=== PATIENT | male | born 1950 | race Caucasian/White ===

== ENCOUNTER 2017-10-20 13:50 | Emergency (ER) | payer MEDICARE ==
[2016-08-18 12:09] VITALS: Wt 76.4 kg
[~2017-10-20 13:50] MED LIST: ACE325 PO; ADV250/50; ALB0.5 INH; ALB6.7R INH; ALPR-1 PO; ALPR-429 PO; AMLO-104 PO; AMLO-96 PO; Albuterol Sulfate NEB; Albuterol/Ipratropium NEB; BISA-229 PO; CALC-515 PO; CARV12.578 PO; CARV3.1255 PO; CETI-459 PO; DOXY150T6 PO; ESCI10TA8 PO; ESCI20TA8 PO; ESCI5TAB10 PO; FLUT1DIS29 IH; FURO-45 PO; FURO-47 PO; FURO20TA19 PO; FURO40TA35 PO; IPRA3AMP21 IH; IPRA3AMP36 IH; IPRA3AMP37 NEB; LORA10CA3 PO; LOSA100T67 PO; LOSA50TA72 PO; MON10 PO; MYLL PO; NITT TD; OLM20 PO; OMEP-218 PO; ONDA-153 SL; PANT40TA65 PO; PRE10 PO; PRED-1 PO; PRED-314 PO; PRED-420 PO; PRED20TA6 PO; SULF1TAB24 PO; TUM500 PO
--- NOTE | 2017-10-20 13:56 | ER Report ---
History and Physical Time Seen By MD: 13:55 (RHIANNON LEAL MD) HPI/ROS CHIEF COMPLAINT: Shortness of breath HISTORY OF PRESENT ILLNESS: Patient is 67 year old male with past medical history significant for COPD and asthma that is related to years working in the [employer]. He states that over the past 4 days and increasing shortness of breath. He denies any chest pain or pressure. He does have oxygen at home but has not been using it. Denies any body aches fevers or chills or any other type of infectious type symptoms. Patient lives by himself. Because the symptoms were not improving he presents to the emergency department for evaluation. Patient is not a smoker. Patient states that he did have a DuoNeb just prior to coming to the emergency department approximately 30 minutes prior. States this is not helping. This is why he presents to the emergency department for evaluation. REVIEW OF SYSTEMS: Constitutional: No fever, no chills. Eyes: No discharge. ENT: No sore throat. Cardiovascular: No chest pain, no palpitations. Respiratory: Shortness of breath, no cough Gastrointestinal: No abdominal pain, no vomiting. Genitourinary: No hematuria. Musculoskeletal: No back pain. Skin: No rashes. Neurological: No headache. (RHIANNON LEAL MD) Allergies: Coded Allergies: acetylcysteine (Verified Adverse Reaction, Intermediate, bronchospasms, ) Home Meds Active Scripts Albuterol Sulfate 0.083% (ALBUTEROL SULFATE 0.083%) 2.5 Mg/3 Ml Vial.neb, 2.5 MG INH Q4-6H Y for WHEEZING, #25 INH Prov:SHANEL SELBY V DO 10/20/17 Azithromycin (ZITHROMAX) 250 Mg Tablet, 1 TAB PO QDAY, #4 TAB Prov:ROHITORAROBERTSHANEL V DO 10/20/17 Prednisone (PREDNISONE) 20 Mg Tablet, 20 MG PO BID, #10 TAB Prov:LAURORA,SHANEL V DO 10/20/17 Pantoprazole Sodium (PANTOPRAZOLE SODIUM) 40 Mg Tablet.dr, 40 MG PO QDAY, #30 TAB.SR 4 Refills Prov:TOMMY LEHMAN MD 07/18/17 Escitalopram Oxalate (ESCITALOPRAM OXALATE) 20 Mg Tablet, 20 MG PO QDAY, #30 TAB 4 Refills Prov:TOMMY LEHMAN MD 07/18/17 Losartan Potassium (LOSARTAN POTASSIUM) 100 Mg Tablet, 100 MG PO QDAY, #30 TAB 4 Refills Prov:TOMMY LEHMAN MD 07/18/17 Furosemide (FUROSEMIDE) 40 Mg Tablet, 1 TAB PO QODAY, #30 TAB 4 Refills Prov:TOMMY LEHMAN MD 07/18/17 Albuterol Sulfate (PROVENTIL HFA) 6.7 Gm Inh, 2 PUFF INH 3-4XD Y for SHORTNESS OF BREATH, #1 INH 4 Refills Prov:TOMMY LEHMAN MD 07/18/17 Fluticasone/Salmeterol (ADVAIR 500-50 DISKUS) 1 Each Disk.w.dev, 1 EACH IH BID, #1 DISK 6 Refills Prov:TOMMY LEHMAN MD 07/18/17 Alprazolam (XANAX) 0.5 Mg Tablet, 1 TAB PO QDAY Y for ANXIETY, #30 TAB Prov:TOMMY LEHMAN MD 07/18/17 Ipratropium/Albuterol Sulfate (IPRAT-ALBUT 0.5-3(2.5) MG/3 ML) 3 Ml Ampul.neb, 3 ML IH Q4-6H Y for SHORTNESS OF BREATH, #100 VIAL 4 Refills Prov:TOMMY LEHMAN MD 07/18/17 Carvedilol (CARVEDILOL) 12.5 Mg Tablet, 0.5 TAB PO BID, #30 TAB 4 Refills Prov:TOMMY LEHMAN MD 07/18/17 Reported Medications Calcium Carbonate (TUMS) 200 Mg Tab.chew, 200 MG PO PRN, TAB.CHEW 09/04/16 Past Medical/Surgical History Past medical history significant for COPD, asthma, history of anxiety and depression, history of dilated cardiomyopathy and hypertension. Past surgical history for herniated disc repair in 1996 and total bilateral hip replacement. (RHIANNON LEAL MD) Hx Smoking: No Smoking Status: Never Smoker Exposure to Second Hand Smoke?: No (worked in [employer]) Hx Substance Use Disorder: No Hx Alcohol Use: Yes (RHIANNON LEAL MD) Constitutional Vital Sign - Last 24 Hours 10/20/17 10/20/17 10/20/17 10/20/17 13:54 13:57 14:00 14:00 Temp 98.5 Pulse 97 88 Resp 22 16 B/P (MAP) 200/144 (162) 200/144 Pulse Ox 80 100 O2 Delivery Room Air Room Air 10/20/17 10/20/17 10/20/17 10/20/17 14:00 14:07 14:10 14:15 Pulse 102 86 90 Resp 16 B/P (MAP) 208/129 (155) 196/123 (147) 189/118 (141) Pulse Ox 99 91 10/20/17 10/20/17 10/20/17 10/20/17 14:17 14:20 14:30 14:40 Pulse 94 86 83 B/P (MAP) 191/115 (140) Pulse Ox 95 94 95 O2 Flow Rate 3.0 10/20/17 10/20/17 10/20/17 10/20/17 14:45 14:50 15:00 15:35 Pulse 81 83 79 Resp 16 B/P (MAP) 182/115 (137) 193/126 (148) Pulse Ox 96 95 10/20/17 10/20/17 15:35 15:43 Pulse 78 Resp 16 Pulse Ox 95 O2 Delivery Nasal Cannula O2 Flow Rate 3.0 (LAURORA,SHANEL V DO) Physical Exam General Appearance: The patient is alert, has no immediate need for airway protection and no signs of toxicity. Increased work of breathing. Initial oxygen saturation was 75% on room air. Eyes: Pupils equal and round no pallor or injection. ENT, Mouth: Mucous membranes are moist. Respiratory: Patient is somewhat barrel chested. Patient with increased respiratory rate. Diffuse audible wheezes bilaterally no rhonchi noted.. Cardiovascular: Regular rate and rhythm. Gastrointestinal: Abdomen is soft and non tender, no masses, bowel sounds normal. Neurological: Awake and alert Skin: Warm and dry, no rashes. Musculoskeletal: Neck is supple non tender. Extremities are nontender, nonswollen and have full range of motion. (RHIANNON LEAL MD) Medical Decision Making Data Points Result Diagram: 10/20/17 0000 10/20/17 0000 Laboratory Hematology Test 10/20/17 00:00 10/20/17 14:20 10/20/17 15:35 Red Blood Count 5.50 M/uL (4.00-5.60) Mean Corpuscular Volume 87.2 fL (80.0-96.0) Mean Corpuscular Hemoglobin 30.2 pg (26.0-33.0) Mean Corpuscular Hemoglobin Concent 34.7 g/dL (32.0-36.0) Red Cell Distribution Width 13.9 % (11.5-14.5) Mean Platelet Volume 7.5 fL (7.2-11.1) Neutrophils (%) (Auto) 84.5 % (39.4-72.5) Lymphocytes (%) (Auto) 8.9 % (17.6-49.6) Monocytes (%) (Auto) 5.2 % (4.1-12.4) Eosinophils (%) (Auto) 0.9 % (0.4-6.7) Basophils (%) (Auto) 0.5 % (0.3-1.4) Nucleated RBC Relative Count (auto) 0.0 /100WBC Neutrophils # (Auto) 7.2 K/uL (2.0-7.4) Lymphocytes # (Auto) 0.8 K/uL (1.3-3.6) Monocytes # (Auto) 0.4 K/uL (0.3-1.0) Eosinophils # (Auto) 0.1 K/uL (0.0-0.5) Basophils # (Auto) 0.0 K/uL (0.0-0.1) Nucleated RBC Absolute Count (auto) 0.00 K/uL Peripheral Blood Smear No Y/N Prothrombin Time 14.1 seconds (12.0-14.4) Prothromb Time International Ratio 1.08 Activated Partial Thromboplast Time 36 seconds (23-35) Sodium Level 134 mmol/L (137-145) Potassium Level 4.4 mmol/L (3.5-5.0) Chloride Level 96 mmol/L (98-107) Carbon Dioxide Level 28 mmol/L (22-30) Blood Urea Nitrogen 12 mg/dl (9-21) Creatinine 0.90 mg/dl (0.66-1.25) Glomerular Filtration Rate Calc > 60.0 Random Glucose 150 mg/dl (75-110) Calcium Level 8.3 mg/dl (8.4-10.2) Total Bilirubin 1.1 mg/dl (0.2-1.3) Aspartate Amino Transf (AST/SGOT) 33 U/L (0-35) Alanine Aminotransferase (ALT/SGPT) 43 U/L (0-56) Alkaline Phosphatase 65 U/L (0-126) B-Type Natriuretic Peptide 445 pg/ml (0-100) Total Protein 7.3 gm/dl (6.3-8.2) Albumin 4.0 g/dl (3.5-5.0) Urine Color Yellow Urine Clarity Clear Urine pH 6.0 pH (4.8-9.5) Urine Specific Morrill 1.006 Urine Protein 30 mg/dL (NEGATIVE) Urine Glucose (UA) Negative mg/dL (NEGATIVE) Urine Ketones Negative mg/dL (NEGATIVE) Urine Blood Negative (NEGATIVE) Urine Nitrite Negative (NEGATIVE) Urine Bilirubin Negative (NEGATIVE) Urine Urobilinogen Negative mg/dL (0.2-1.9) Urine Leukocyte Esterase Negative (NEGATIVE) Urine RBC None /HPF (0-2/HPF) Urine WBC <1 /HPF (0-5/HPF) Urine Squamous Epithelial Cells None /LPF (</=FEW) Urine Bacteria Negative /HPF (NONE-FEW) Urine Mucus None /HPF (NONE-FEW) Troponin I < 0.012 ng/ml Chemistry Test 10/20/17 00:00 10/20/17 14:20 10/20/17 15:35 White Blood Count 8.5 k/uL (4.5-11.0) Red Blood Count 5.50 M/uL (4.00-5.60) Hemoglobin 16.6 g/dL (14.0-18.0) Hematocrit 47.9 % (42.0-52.0) Mean Corpuscular Volume 87.2 fL (80.0-96.0) Mean Corpuscular Hemoglobin 30.2 pg (26.0-33.0) Mean Corpuscular Hemoglobin Concent 34.7 g/dL (32.0-36.0) Red Cell Distribution Width 13.9 % (11.5-14.5) Platelet Count 145 K/uL (150-450) Mean Platelet Volume 7.5 fL (7.2-11.1) Neutrophils (%) (Auto) 84.5 % (39.4-72.5) Lymphocytes (%) (Auto) 8.9 % (17.6-49.6) Monocytes (%) (Auto) 5.2 % (4.1-12.4) Eosinophils (%) (Auto) 0.9 % (0.4-6.7) Basophils (%) (Auto) 0.5 % (0.3-1.4) Nucleated RBC Relative Count (auto) 0.0 /100WBC Neutrophils # (Auto) 7.2 K/uL (2.0-7.4) Lymphocytes # (Auto) 0.8 K/uL (1.3-3.6) Monocytes # (Auto) 0.4 K/uL (0.3-1.0) Eosinophils # (Auto) 0.1 K/uL (0.0-0.5) Basophils # (Auto) 0.0 K/uL (0.0-0.1) Nucleated RBC Absolute Count (auto) 0.00 K/uL Peripheral Blood Smear No Y/N Prothrombin Time 14.1 seconds (12.0-14.4) Prothromb Time International Ratio 1.08 Activated Partial Thromboplast Time 36 seconds (23-35) Glomerular Filtration Rate Calc > 60.0 Calcium Level 8.3 mg/dl (8.4-10.2) Total Bilirubin 1.1 mg/dl (0.2-1.3) Aspartate Amino Transf (AST/SGOT) 33 U/L (0-35) Alanine Aminotransferase (ALT/SGPT) 43 U/L (0-56) Alkaline Phosphatase 65 U/L (0-126) B-Type Natriuretic Peptide 445 pg/ml (0-100) Total Protein 7.3 gm/dl (6.3-8.2) Albumin 4.0 g/dl (3.5-5.0) Urine Color Yellow Urine Clarity Clear Urine pH 6.0 pH (4.8-9.5) Urine Specific Morrill 1.006 Urine Protein 30 mg/dL (NEGATIVE) Urine Glucose (UA) Negative mg/dL (NEGATIVE) Urine Ketones Negative mg/dL (NEGATIVE) Urine Blood Negative (NEGATIVE) Urine Nitrite Negative (NEGATIVE) Urine Bilirubin Negative (NEGATIVE) Urine Urobilinogen Negative mg/dL (0.2-1.9) Urine Leukocyte Esterase Negative (NEGATIVE) Urine RBC None /HPF (0-2/HPF) Urine WBC <1 /HPF (0-5/HPF) Urine Squamous Epithelial Cells None /LPF (</=FEW) Urine Bacteria Negative /HPF (NONE-FEW) Urine Mucus None /HPF (NONE-FEW) Troponin I < 0.012 ng/ml Coagulation Test 10/20/17 00:00 Prothrombin Time 14.1 seconds Prothromb Time International Ratio 1.08 Activated Partial Thromboplast Time 36 seconds Urinalysis Test 10/20/17 14:20 Urine Color Yellow Urine Clarity Clear Urine pH 6.0 pH (4.8-9.5) Urine Specific Morrill 1.006 Urine Protein 30 mg/dL (NEGATIVE) Urine Glucose (UA) Negative mg/dL (NEGATIVE) Urine Ketones Negative mg/dL (NEGATIVE) Urine Blood Negative (NEGATIVE) Urine Nitrite Negative (NEGATIVE) Urine Bilirubin Negative (NEGATIVE) Urine Urobilinogen Negative mg/dL (0.2-1.9) Urine Leukocyte Esterase Negative (NEGATIVE) Urine RBC None /HPF (0-2/HPF) Urine WBC <1 /HPF (0-5/HPF) Urine Squamous Epithelial Cells None /LPF (</=FEW) Urine Bacteria Negative /HPF (NONE-FEW) Urine Mucus None /HPF (NONE-FEW) (SHANEL SELBY DO) EKG/Imaging EKG Interpretation nsr @ 80 with t wave inverisons anterior leads and non specific st wave changes , similar to prior 08/17/2016 Imaging no infiltrate, no pleural effusions, old rib fx (SHANEL SELBY DO) ED Course/Re-evaluation ED Course 10/20/2017 2:03:16 pm plan at this time will be workup for shortness of breath. Most likely cause is acute exacerbation of COPD. We will perform do a nebulizer treatment along with oral steroids. We will check troponin we will check BNP secondary history of cardiomyopathy. Doubt PE at this time. Disposition pending on ED course (RHIANNON LEAL MD) Clinical Indication for ER IV: IV Access ED Course 10/20/2017 3:23:36 pm Pt states he is feeling much better after steroids, nebs and lasix. Pts lungs have only a mild wheeze and pt appears comfortable. Pt states he feels he can go home. Pt has oxygen and nebulizer at home. Will need steriods for few days. Asked pt to stay for second troponin. Pt denies CP . SOB has been for 3 days so will check a second troponin. If troponin is neg will d/c 10/20/2017 4:11:44 pm Pt would like to go home. States he has to work tomorrow "i get points off for days I am unable to go". PT has oxygen and nebulizer at home. will give him zithromax and prednisone. 10/20/2017 4:36:04 pm Pt is d/c to home however he did not bring his oxygen with him today, its at home. Attempting to have his oxygen company bring a portable unit. Decision to Disposition Date: Oct 20, 2017 Decision to Disposition Time: 16:12 (SHANEL SELBY DO) Depart Departure Latest Vital Signs Vital Signs Date Time Temp Pulse Resp B/P (MAP) Pulse Ox O2 Delivery O2 Flow Rate FiO2 10/20/17 15:43 78 16 10/20/17 15:35 95 Nasal Cannula 3.0 10/20/17 15:00 193/126 (148) 10/20/17 13:57 98.5 (SHANEL SELBY V DO) Impression: Primary Impression: COPD exacerbation Condition: Improved Disposition: HOME OR SELF-CARE Referrals: TOMMY LEHMAN MD (PCP) 2 Days New Scripts Albuterol Sulfate 0.083% (ALBUTEROL SULFATE 0.083%) 2.5 Mg/3 Ml Vial.neb 2.5 MG INH Q4-6H Y for WHEEZING, #25 INH Prov: SHANEL SELBY V DO 10/20/17 Azithromycin (ZITHROMAX) 250 Mg Tablet 1 TAB PO QDAY, #4 TAB Prov: ROBERT SELBYSA V DO 10/20/17 Prednisone (PREDNISONE) 20 Mg Tablet 20 MG PO BID, #10 TAB Prov: SHANEL SELBY V DO 10/20/17 Departure Forms: ER Transition Record, Off Work/School Form, School or Work Release?: Work Number of days to be released: 1 Patient Portal Information Patient Instructions: COPD (Chronic Obstructive Pulmonary Disease) (ED) Additional Instructions: Follow up with your family doctor in next 48 hours Return if symptoms worsen prior to follow up. Prednisone twice a day until finished (Start tomorrow) Zithromax once a day for 4 days (start tomorrow_ Albuterol nebulizer every 4 hours as needed for wheezing/cough. Use your oxygen at home 24 hours a day while you are having symptoms. RHIANNON LEAL MD Oct 20, 2017 13:55 SHANEL SELBY DO Oct 20, 2017 15:25
[2017-10-20] MEDS ORDERED: ALBUTEROL/IPRATROPIUM 3 ML NEB NEB ONE ×2 (14:00→15:25)
[2017-10-20] MEDS ORDERED: ALBUTEROL/IPRATROPIUM 3 ML NEB ONE (14:00)
[2017-10-20] MEDS ORDERED: methylPREDNIS SUCC 125 MG/2ML IVP ONE (14:00)
[2017-10-20 14:20] LABS: PLATELET COUNT, AUTOMATED 145 K/uL (150-450)
[2017-10-20 14:29] LABS: INR 1.08
[2017-10-20] MEDS ORDERED: FUROSEMIDE 40 MG/4 ML VIAL IVP ONE (14:50)
--- NOTE | 2017-10-20 15:26 | RADIOLOGY IMAGING REPORT ---
FACILITY: [facility] PATIENT NAME: Dudley Matthews : 1950 MR: [id number] V: [id number] EXAM DATE: ORDERING PHYSICIAN: RHIANNON LEAL TECHNOLOGIST: Location: [facility] [place] Patient: Dudley Matthews : 1950 Visit/Account:[id number] Date of Sevice: 10/20/2017 2 VIEWS CHEST INDICATION: Difficulty breathing. COMPARISON: 08/27/2016. FINDINGS: Cardiomediastinal silhouette and pulmonary vessels within normal limits. There is no focal infiltrate or lobar consolidation. There is no pneumothorax or pleural effusion. No discrete nodule. Upper abdomen is unremarkable. No acute bony abnormality. Bilateral old rib fractures. IMPRESSION: 1. No acute cardiopulmonary process. Report Dictated By: Richardson Gaston at 10/20/2017 3:20 PM Report E-Signed By: Richardson Gaston at 10/20/2017 3:22 PM WSN:[id number]
[2017-10-20] MEDS ORDERED: AZIT-1 PO (16:13)
[2017-10-20] MEDS ORDERED: PRED20TA6 PO (16:13)
[2017-10-20] MEDS ORDERED: ALBU2.5V36 INH (16:18)
[2017-10-20 16:20] VITALS: BP 194/136
[2017-10-20] MEDS ORDERED: AZITHROMYCIN 250 MG TAB PO ONE (16:20)
[2017-10-20] MEDS ORDERED: predniSONE 20 MG TAB PO ONE (16:20)
--- NOTE | 2017-10-20 16:33 | EKG ---
[place] [facility] [place] NAME: DIOGENES STOLL : [id number] MR: [id number] V: [id number] EXAM DATE: ORDERING PHYSICIAN: RHIANNON LEAL TECHNOLOGIST: CAMPOS Wu Reason : SOB Blood Pressure : / mmHG Vent. Rate : 084 BPM Atrial Rate : 084 BPM P-R Int : 156 ms QRS Dur : 092 ms QT Int : 392 ms P-R-T Axes : 065 016 076 degrees QTc Int : 463 ms Normal sinus rhythm Nonspecific T wave abnormality Prolonged QT Abnormal ECG When compared with ECG of 17-AUG-2016 21:27, Criteria for Inferior infarct are no longer present Nonspecific T wave abnormality now evident in Lateral leads Confirmed by KARINA BLANCO ([id number]) on 10/21/2017 6:34:38 AM Referred By: MEL Confirmed By:KARINA BLANCO
== END 2017-10-20 17:14 | disposition home or self-care (01) ==
LOC: ER 13:55
DX: J44.1 Chronic obstructive pulmonary disease with (acute) exacerbation (principal)
CPT/HCPCS: 71046; 81001; 83880; 84484; 85025; 85610; 85730; 93005; 94640; 96374; 96375; 99284; J1940; J2930; J7512; J7620; Q0144; 82040; 82247; 82310; 82374; 82435; 82565; 82947; 84075; 84132; 84155; 84295; 84450; 84460; 84520

== ENCOUNTER 2018-03-07 02:12 | Inpatient (IN) | payer MEDICARE ==
[~2018-03-07] VITALS: Ht 175.3 cm; Wt 88.0 kg
[2018-03-07] VITALS (56 sets, daily range): BP systolic 150–203; BP diastolic 80–147; Ht 175.3 cm; Wt 88.0 kg
[~2018-03-07 02:12] MED LIST changes: +ALBU2.5V36 INH; +AZIT-1 PO; +IPRA3AMP10 IH; -IPRA3AMP21 IH
--- NOTE | 2018-03-07 02:15 | ER Report ---
History and Physical Time Seen By : 02:14 HPI/ROS CHIEF COMPLAINT: fall after dog jumped on him HISTORY OF PRESENT ILLNESS: PT states he was walking down an alley to get to his apart when a persons dog jumped up on him and knocked him over. PT denies hitting his head. Pt landed on his right side. Pt has bruising and swelling to right elbow. PT has pain in right lower ribs and upper abdomen. Pt also has pain in right hip and is having trouble moving the leg. PT sates pain is worse when he tries to move. Occurred at 5pm and pain is not any better after motrin. pt does not take any blood thinners. Pt is on oxygen and has copd. Pt states that he is chronically sob so not sure if it is worse since he fell. PT does state he has pain in right side with breathing since the fall. REVIEW OF SYSTEMS: Constitutional: No fever, no chills. Eyes: No discharge. ENT: No sore throat. Cardiovascular: no palpitations. Respiratory: No cough, + shortness of breath, + pleuritic cp. Gastrointestinal: + abdominal pain, no vomiting. Genitourinary: No hematuria. Musculoskeletal: No back pain, no neck pain, + right elbow pain, + r hip pian Skin: + bruising right elbow Neurological: No headache. Allergies: Coded Allergies: iopamidol (Verified Allergy, Severe, EYE SWELLING AND HIVES, 03/07/18) acetylcysteine (Verified Adverse Reaction, Intermediate, bronchospasms, 03/07/18) Home Meds Active Scripts Fluticasone/Salmeterol (ADVAIR 500-50 DISKUS) 1 Each Disk.w.dev, 1 EACH IH BID, #1 DISK 5 Refills Prov:TOMMY LEHMAN MD 01/06/18 Losartan Potassium (LOSARTAN POTASSIUM) 100 Mg Tablet, 100 MG PO QDAY, #90 TAB 3 Refills Prov:TOMMY LEHMAN MD 12/20/17 Pantoprazole Sodium (PANTOPRAZOLE SODIUM) 40 Mg Tablet.dr, 40 MG PO QDAY, #90 TAB.SR 4 Refills Prov:TOMMY LEHMAN MD 11/04/17 Albuterol Sulfate 0.083% (ALBUTEROL SULFATE 0.083%) 2.5 Mg/3 Ml Vial.neb, 2.5 MG INH Q4-6H Y for WHEEZING, #25 INH Prov:SHANEL SELBY V DO 10/20/17 Escitalopram Oxalate (ESCITALOPRAM OXALATE) 20 Mg Tablet, 20 MG PO QDAY, #30 TAB 4 Refills Prov:TOMMY LEHMAN MD 07/18/17 Furosemide (FUROSEMIDE) 40 Mg Tablet, 1 TAB PO QODAY, #30 TAB 4 Refills Prov:TOMMY LEHMAN MD 07/18/17 Albuterol Sulfate (PROVENTIL HFA) 6.7 Gm Inh, 2 PUFF INH 3-4XD Y for SHORTNESS OF BREATH, #1 INH 4 Refills Prov:TOMMY LEHMAN MD 07/18/17 Alprazolam (XANAX) 0.5 Mg Tablet, 1 TAB PO QDAY Y for ANXIETY, #30 TAB Prov:TOMMY LEHMAN MD 07/18/17 Ipratropium/Albuterol Sulfate (IPRAT-ALBUT 0.5-3(2.5) MG/3 ML) 3 Ml Ampul.neb, 3 ML IH Q4-6H Y for SHORTNESS OF BREATH, #100 VIAL 4 Refills Prov:TOMMY LEHMAN MD 07/18/17 Carvedilol (CARVEDILOL) 12.5 Mg Tablet, 0.5 TAB PO BID, #30 TAB 4 Refills Prov:TOMMY LEHMAN MD 07/18/17 Discontinued Reported Medications Calcium Carbonate (TUMS) 200 Mg Tab.chew, 200 MG PO PRN, TAB.CHEW 09/04/16 Discontinued Scripts Azithromycin (ZITHROMAX) 250 Mg Tablet, 1 TAB PO QDAY, #4 TAB Prov:SHANEL SELBY V DO 10/20/17 Prednisone (PREDNISONE) 20 Mg Tablet, 20 MG PO BID, #10 TAB Prov:SHANEL SELBY V DO 10/20/17 Past Medical/Surgical History Pmhx: depression, anxiety, copd, htn, gerd, herniated disc Pshx: b/l hip replacements Reviewed Nurses Notes: Yes Old Medical Records Reviewed: Yes Hx Smoking: No Smoking Status: Never Smoker Exposure to Second Hand 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) Hx Substance Use Disorder: No Hx Alcohol Use: Yes (states occasional) Constitutional Vital Sign - Last 24 Hours 03/07/18 03/07/18 03/07/18 03/07/18 02:18 02:19 02:21 02:27 Temp 98.1 Pulse 92 79 Resp 24 B/P (MAP) 166/120 166/120 (135) 192/114 (140) Pulse Ox 79 94 O2 Delivery Room Air 03/07/18 03/07/18 03/07/18 03/07/18 02:42 03:42 03:49 03:57 Pulse 77 78 73 B/P (MAP) 185/114 (137) Pulse Ox 94 96 98 03/07/18 03/07/18 03/07/18 03/07/18 04:00 04:05 04:20 04:26 Pulse 74 67 62 Resp 24 B/P (MAP) 192/126 (148) Pulse Ox 97 99 03/07/18 03/07/18 03/07/18 03/07/18 04:26 04:30 04:35 04:36 Pulse 62 61 Resp 24 B/P (MAP) 187/117 (140) Pulse Ox 97 99 O2 Delivery Nasal Cannula O2 Flow Rate 4.0 03/07/18 03/07/18 03/07/18 04:46 04:50 04:50 Pulse 65 B/P (MAP) 194/125 (148) Pulse Ox 98 O2 Flow Rate 4.0 Physical Exam General Appearance: The patient is alert, has no immediate need for airway protection and no signs of toxicity. Eyes: Pupils equal and round no pallor or injection, EOMI ENT: no pharyngeal erythema or exudates, Mucous membranes are moist, TM are nl b/l Respiratory: Decreased breath sound bl Cardiovascular: Regular rate and rhythm. pulses are equal and symmetrical; + chest wall tenderness lateral r ribs 6-11 Gastrointestinal: Abdomen is soft with mild enderness over rUQ, no masses, bowel sounds normal, no guarding, no rigidity or rebound Neurological: Cranial nerves II-XII grossly intact, Skin: Warm and dry, + ecchymosis to right elbow Musculoskeletal: Neck is supple non tender, no vertebral tenderness; Pt has FROM of LUE. Pt has pain over R elbow with palpation but is able to supinate and pronate; PT is unable to elevate right lower extremity off stretcher secondary to pain in right hip with movement; Pt is able to elevate left lower extremity. No deformity is evident on extremites. DIFFERENTIAL DIAGNOSIS: After history and physical exam differential diagnosis was considered for elbow contusion vs fx; rib fx vs contusion, liver laceration , hip contusion, hip fx, ptx Medical Decision Making Data Points Result Diagram: 03/07/180 03/07/18 0230 Laboratory Hematology Test 03/07/18 02:30 Red Blood Count 5.52 M/uL (4.00-5.60) Mean Corpuscular Volume 86.3 fL (80.0-96.0) Mean Corpuscular Hemoglobin 30.1 pg (26.0-33.0) Mean Corpuscular Hemoglobin Concent 34.8 g/dL (32.0-36.0) Red Cell Distribution Width 13.6 % (11.5-14.5) Mean Platelet Volume 8.1 fL (7.2-11.1) Neutrophils (%) (Auto) 85.4 % (39.4-72.5) Lymphocytes (%) (Auto) 6.9 % (17.6-49.6) Monocytes (%) (Auto) 6.3 % (4.1-12.4) Eosinophils (%) (Auto) 1.0 % (0.4-6.7) Basophils (%) (Auto) 0.4 % (0.3-1.4) Nucleated RBC Relative Count (auto) 0.8 /100WBC Neutrophils # (Auto) 9.3 K/uL (2.0-7.4) Lymphocytes # (Auto) 0.8 K/uL (1.3-3.6) Monocytes # (Auto) 0.7 K/uL (0.3-1.0) Eosinophils # (Auto) 0.1 K/uL (0.0-0.5) Basophils # (Auto) 0.0 K/uL (0.0-0.1) Nucleated RBC Absolute Count (auto) 0.09 K/uL Sodium Level 133 mmol/L (137-145) Potassium Level 4.1 mmol/L (3.5-5.0) Chloride Level 95 mmol/L (98-107) Carbon Dioxide Level 23 mmol/L (22-30) Blood Urea Nitrogen 12 mg/dl (9-21) Creatinine 0.90 mg/dl (0.66-1.25) Glomerular Filtration Rate Calc > 60.0 Random Glucose 99 mg/dl (75-110) Calcium Level 8.7 mg/dl (8.4-10.2) Total Bilirubin 0.9 mg/dl (0.2-1.3) Aspartate Amino Transf (AST/SGOT) 46 U/L (0-35) Alanine Aminotransferase (ALT/SGPT) 39 U/L (0-56) Alkaline Phosphatase 63 U/L (0-126) Total Protein 7.4 g/dl (6.3-8.2) Albumin 4.4 g/dl (3.5-5.0) Serum Alcohol 26 mg/dl Chemistry Test 03/07/18 02:30 White Blood Count 10.9 k/uL (4.5-11.0) Red Blood Count 5.52 M/uL (4.00-5.60) Hemoglobin 16.6 g/dL (14.0-18.0) Hematocrit 47.7 % (42.0-52.0) Mean Corpuscular Volume 86.3 fL (80.0-96.0) Mean Corpuscular Hemoglobin 30.1 pg (26.0-33.0) Mean Corpuscular Hemoglobin Concent 34.8 g/dL (32.0-36.0) Red Cell Distribution Width 13.6 % (11.5-14.5) Platelet Count 170 K/uL (150-450) Mean Platelet Volume 8.1 fL (7.2-11.1) Neutrophils (%) (Auto) 85.4 % (39.4-72.5) Lymphocytes (%) (Auto) 6.9 % (17.6-49.6) Monocytes (%) (Auto) 6.3 % (4.1-12.4) Eosinophils (%) (Auto) 1.0 % (0.4-6.7) Basophils (%) (Auto) 0.4 % (0.3-1.4) Nucleated RBC Relative Count (auto) 0.8 /100WBC Neutrophils # (Auto) 9.3 K/uL (2.0-7.4) Lymphocytes # (Auto) 0.8 K/uL (1.3-3.6) Monocytes # (Auto) 0.7 K/uL (0.3-1.0) Eosinophils # (Auto) 0.1 K/uL (0.0-0.5) Basophils # (Auto) 0.0 K/uL (0.0-0.1) Nucleated RBC Absolute Count (auto) 0.09 K/uL Glomerular Filtration Rate Calc > 60.0 Calcium Level 8.7 mg/dl (8.4-10.2) Total Bilirubin 0.9 mg/dl (0.2-1.3) Aspartate Amino Transf (AST/SGOT) 46 U/L (0-35) Alanine Aminotransferase (ALT/SGPT) 39 U/L (0-56) Alkaline Phosphatase 63 U/L (0-126) Total Protein 7.4 g/dl (6.3-8.2) Albumin 4.4 g/dl (3.5-5.0) Serum Alcohol 26 mg/dl Toxicology Test 03/07/18 02:30 Serum Alcohol 26 mg/dl EKG/Imaging Imaging RIb fx 6,7,8,9 without ptx Elbow: no dislocation or fx Hip: no dislocation, pt with prosthesis b/l, no pelvis fx abd/pelvis: no liver contusion ED Course/Re-evaluation Clinical Indication for ER IV: IV Access ED Course 03/07/2018 3:40:02 am Pt back from CT and immediately started with swelling to both eyelids R>L and chemosis of the right eye. Pt also wtih two hives on his r shoulder. I suspect pt is having allergic reaction to IV contrast. No oral swelling. Will give solumedrol, pepcid and benadryl. Pt has no oral swelling and no active wheezing. 03/07/2018 4:05:31 am PT still with swelling and hives without improvement post solulmedrol, pepcid and benadryl. PTs oral airway remains patent and pt denies any change in breathing. will give EPI due to patients now with hives and no relief of orbital swelling. Pts rib xray does show multiple rib fx. 03/07/2018 4:19:59 am PTs blood pressure continues to be elevated in emergency room. PT states he did not take his evening blood pressure pill, carvidelol or his nebulizer treatment . Will medicate 03/07/2018 5:07:[address] Godoy, surgeon who will admit. He would like to see if we are able to obtain a FVC on the patient to determine if he should go to the ICU vs floor. While awake pt should be using incentive spirometry every 15 minutes while awake. He also recommend tylenol 1 gram IV, neuroton 100mg and toradol 15mg. If still with pain then DIGITAL ASSISTANT. 03/07/2018 5:16:40 am Rupert from [facility] is unable to find the machine to test FVC. He is calling his co worker at home to determine if they know were it is located. If we are unable to find the machine will meet to icu. 03/07/2018 5:19:00 am Pts family member who called statse that pt is a drinker. PT did not admit to drinking alcohol. will add ETOH level to current labs and will admit to ICU since we are unable to obtain FVC tonight since the machine is unable to be located. Will admit to ICU initially since do not have FVC and the questionable hx of alcohol abuse Decision to Disposition Date: Mar 07, 2018 Decision to Disposition Time: 05:40 Critical Care Time I spent a total of 30 minutes of critical care time in obtaining history, performing a physical exam, bedside monitoring of interventions, collecting and interpreting tests and discussion with consultants but not including time spent performing procedures. Depart Departure Latest Vital Signs Vital Signs Date Time Temp Pulse Resp B/P (MAP) Pulse Ox O2 Delivery O2 Flow Rate FiO2 03/07/18 04:50 65 98 03/07/18 04:50 4.0 03/07/18 04:46 194/125 (148) 03/07/18 04:36 24 03/07/18 04:26 Nasal Cannula 03/07/18 02:18 98.1 Impression: Primary Impression: Multiple fractures of ribs of right side Additional Impressions: Allergic reaction to contrast dye COPD (chronic obstructive pulmonary disease) Essential (primary) hypertension Condition: Condition Unchanged Referrals: TOMMY LEHMAN MD (PCP) Problem Qualifiers Primary Impression: Multiple fractures of ribs of right side Encounter type: initial encounter Fracture type: closed Qualified Codes: S22.41XA - Multiple fractures of ribs, right side, initial encounter for closed fracture Additional Impressions: Allergic reaction to contrast dye Encounter type: initial encounter Qualified Codes: T50.8X5A - Adverse effect of diagnostic agents, initial encounter COPD (chronic obstructive pulmonary disease) COPD type: chronic bronchitis Chronic bronchitis type: unspecified Qualified Codes: J42 - Unspecified chronic bronchitis SHANEL SELBY DO Mar 07, 2018 02:15
[2018-03-07] MEDS ORDERED: IOPAMIDOL 76% 75 ML INFUS BTL 75 ML ONE (02:44)
[2018-03-07] MEDS ORDERED: KETOROLAC 15 MG/ML VIAL IVP ONE (03:00)
[2018-03-07] MEDS ORDERED: ORPHENADRINE 60MG/2ML INJ IVP ONE (03:00)
[2018-03-07] MEDS ORDERED: ANAPHYLAXIS KIT 1 EA ONE (03:38)
[2018-03-07] MEDS ORDERED: methylPREDNIS SUCC 125 MG/2ML IVP ONE (03:40)
[2018-03-07] MEDS ORDERED: FAMOTIDINE(*) 20MG/50ML PREMIX 50 ML IVPB ONE (03:40)
[2018-03-07] MEDS ORDERED: diphenhydrAMINE 50 MG/ML VIAL IVP ONE (03:40)
--- NOTE | 2018-03-07 03:46 | RADIOLOGY IMAGING REPORT ---
FACILITY: [facility] PATIENT NAME: Dudley Matthews : 1950 MR: [id number] V: [id number] EXAM DATE: ORDERING PHYSICIAN: SHANEL SELBY TECHNOLOGIST: Location: [facility] [place] Patient: Dudley Matthews : 1950 Visit/Account:[id number] Date of Sevice: 03/07/2018 INDICATION: fell on right side EXAM DATE: 03/07/2018 2:24 AM COMPARISON: None. FINDINGS: 3 images right elbow. Mineralization is normal. No acute alignment abnormality or fracture. Soft tiss ues are unremarkable. IMPRESSION: No acute osseous abnormality of the right elbow. Report Dictated By: Navneet Marquez MD at 03/07/2018 3:40 AM Report E-Signed By: Navneet Marquez MD at 03/07/2018 3:42 AM WSN:[id number]
--- NOTE | 2018-03-07 03:47 | RADIOLOGY IMAGING REPORT ---
FACILITY: [facility] [place] PATIENT NAME: Dudley Matthews : 1950 MR: [id number] V: [id number] EXAM DATE: ORDERING PHYSICIAN: SHANEL SELBY TECHNOLOGIST: [place] [facility] [place] : 1950 Visit/Account:[id number] Date of Sevice: 03/07/2018 Exam type: CHEST PA AND LAT, RIBS RIGHT INDICATION: Fall. COMPARISON: Chest radiograph dated October 20, 2017. FINDINGS: Two-view chest shows heart size within normal limits. There is no focal infiltrate or conso lidation. There is no pneumothorax or pleural effusion. No visualized acute osseous abnormality. Views of right ribs show multiple chronic appearing rib fractures. There appear to be acute fractures of the anterior right seventh, eighth, and ninth ribs. Possible additional acute fracture of the ant erior right sixth rib. IMPRESSION: 1. No acute cardiopulmonary process. 2. Multiple chronic right-sided rib fractures with apparent acute fractures of the anterior right sev enth, eighth, and ninth ribs. Possible additional acute fracture of the right anterior sixth rib. No visualized pneumothorax. Report Dictated By: Shukri Souza MD at 03/07/2018 3:36 AM Report E-Signed By: Shukri Souza MD at 03/07/2018 3:42 AM WSN:[id number]
--- NOTE | 2018-03-07 03:47 | RADIOLOGY IMAGING REPORT ---
[facility] PATIENT NAME: Dudley Matthews : 1950 MR: [id number] V: [id number] EXAM DATE: ORDERING PHYSICIAN: SHANEL SELBY TECHNOLOGIST: Location: [facility] [place] Patient: Dudley Matthews : 1950 Visit/Account:[id number] Date of Sevice: 03/07/2018 Exam type: CHEST PA AND LAT, RIBS RIGHT INDICATION: Fall. COMPARISON: Chest radiograph dated October 20, 2017. FINDINGS: Two-view chest shows heart size within normal limits. There is no focal infiltrate or conso lidation. There is no pneumothorax or pleural effusion. No visualized acute osseous abnormality. Views of right ribs show multiple chronic appearing rib fractures. There appear to be acute fractures of the anterior right seventh, eighth, and ninth ribs. Possible additional acute fracture of the ant erior right sixth rib. IMPRESSION: 1. No acute cardiopulmonary process. 2. Multiple chronic right-sided rib fractures with apparent acute fractures of the anterior right sev enth, eighth, and ninth ribs. Possible additional acute fracture of the right anterior sixth rib. No visualized pneumothorax. Report Dictated By: Shukri Souza MD at 03/07/2018 3:36 AM Report E-Signed By: Shukri Souza MD at 03/07/2018 3:42 AM WSN:[id number]
--- NOTE | 2018-03-07 03:48 | RADIOLOGY IMAGING REPORT ---
FACILITY: [facility] [place] PATIENT NAME: Dudley Matthews : 1950 MR: [id number] V: [id number] EXAM DATE: ORDERING PHYSICIAN: SHANEL SELBY TECHNOLOGIST: Location: [facility] Patient: Dudley Matthews : 1950 Visit/Account:[id number] Date of Sevice: 03/07/2018 HIP RIGHT Indication: Fall on right side Comparison: None available Findings: 2 views of the right hip. No visualized acute osseous abnormality. Note is made of bilateral right hip prosthesis without visualized hardware complication or dislocatio n. Mild degenerative changes left hip joint noted IMPRESSION: 1. No acute osseous abnormality. Report Dictated By: Shukri Souza MD at 03/07/2018 3:42 AM Report E-Signed By: Shukri Souza MD at 03/07/2018 3:44 AM WSN:[id number]
--- NOTE | 2018-03-07 04:02 | RADIOLOGY IMAGING REPORT ---
[place] [facility] [place] NAME: Dudley Matthews : 1950 MR: [id number] V: [id number] EXAM DATE: ORDERING PHYSICIAN: SHANEL SELBY TECHNOLOGIST: Location: [facility] [place] Patient: Dudley Matthews : 1950 Visit/Account:[id number] Date of Sevice: 03/07/2018 ABDOMEN/PELVIS WITH CONTRAST HISTORY: Right upper quadrant pain TECHNIQUE: CT abdomen and pelvis with intravenous contrast. One of the following dose optimization techniques was utilized in the performance of this exam: Autom ated exposure control; adjustment of the mA and/or kV according to the patient's size; or use of an i terative reconstruction technique. Specific details can be referenced in the facility's radiology C T exam operational policy. CONTRAST: 75 mL Isovue-370. COMPARISON: CT dated October 20, 2012. FINDINGS: Visualized lung bases: Mild right basilar scarring. Otherwise negative. Hepatobiliary: Negative. Spleen: Negative. Adrenals: Negative. Pancreas: Negative. Kidneys/: Negative. GI: Moderate sigmoid colon diverticulosis without evidence for diverticulitis. Mild scattered additio nal diverticulosis without evidence for diverticulitis. Otherwise negative. Appendix is unremarkable. Vessels/spaces/nodes: Mild atherosclerosis. Otherwise negative. No free air or free fluid. Bones/soft tissues: Small fat-containing umbilical hernia. There are subtle nondisplaced fractures of the anterior right seventh, eighth, and ninth ribs. Nond isplaced fracture of the anterolateral right sixth rib. There are multiple chronic right rib fracture s. No additional fractures identified although majority of the ribs are out of view. Unremarkable appearance of bilateral hip prostheses. No visualized hip fractures. Degenerative change s within the lumbar spine. IMPRESSION: 1. Nondisplaced fractures of the right sixth through ninth ribs. No additional fractures identified h owever cannot exclude additional out of view rib fractures. 2. Otherwise, no acute findings. 3. Incidental/chronic findings, as above. Report Dictated By: Shukri Souza MD at 03/07/2018 3:49 AM Report E-Signed By: Shukri Souza MD at 03/07/2018 3:58 AM WSN:[id number]
[2018-03-07] MEDS ORDERED: EPINEPHrine 0.3 MG SYR IM ONLY ONE (04:10)
[2018-03-07] MEDS ORDERED: METOPROLOL TART 5 MG/5 ML VIAL IVP ONE (04:25)
[2018-03-07] MEDS ORDERED: ALBUTEROL/IPRATROPIUM 3 ML NEB NEB ONE (04:25)
[2018-03-07 05:19] LABS: PLATELET COUNT, AUTOMATED 170 K/uL (150-450)
[2018-03-07] MEDS ORDERED: NS(*) 0.9% 1000 ML BAG 1,000 ML IV ONE (06:05)
[2018-03-07] MEDS ORDERED: NALOXONE HCL 0.4 MG/ML VIAL IVP PRN ×2 (06:20→06:25)
[2018-03-07] MEDS ORDERED: MORPHINE SULFATE 30 MG PCA IV PRN (06:25)
[2018-03-07] MEDS ORDERED: NS(*) 0.9% 1000 ML BAG 1,000 ML IV PRN (06:30)
[2018-03-07] MEDS ORDERED: LOSARTAN POTASSIUM 50 MG TAB ONE (06:33)
[2018-03-07] MEDS ORDERED: ONDANSETRON 4 MG/2 ML VIAL IVP PRN (06:35)
[2018-03-07] MEDS: LOSARTAN POTASSIUM 50 MG TAB PO SCH (07:13)
[2018-03-07] MEDS: GABAPENTIN 100 MG CAP PO SCH ×3 (09:14→21:32)
[2018-03-07] MEDS: ACETAMINOPHEN(*)1000 MG/100 ML 100 ML IVPB SCH ×2 (09:15→16:25)
[2018-03-07] MEDS: CARVEDILOL 6.25 MG TAB PO SCH ×2 (09:15→21:34)
[2018-03-07] MEDS: ALBUTEROL/IPRATROPIUM 3 ML NEB NEB SCH ×4 (09:24→22:39)
[2018-03-07] MEDS: KETOROLAC 15 MG/ML VIAL IVP SCH ×3 (10:16→22:30)
[2018-03-07] MEDS ORDERED: hydrALAZINE HCL 20 MG/ML VIAL IVP PRN ×2 (17:40→23:30)
[2018-03-07] MEDS ORDERED: ALPRAZolam 0.5 MG TAB PO PRN (17:40)
[2018-03-07] MEDS ORDERED: traMADol 50 MG TAB PO PRN (17:55)
[2018-03-07] MEDS: PANTOPRAZOLE SOD 40 MG TABEC PO SCH (19:32)
[2018-03-07] MEDS: ENOXAPARIN 30 MG/0.3 ML SYR SC SCH (21:33)
[2018-03-07] MEDS: DOCUSATE SODIUM 100 MG CAP PO SCH (21:34)
[2018-03-07] MEDS: POLYETHYLENE GLYCOL 17 GM PKT PO SCH (21:34)
[2018-03-08] VITALS (8 sets, daily range): BP systolic 141–172; BP diastolic 89–109
[2018-03-08] MEDS ORDERED: hydrALAZINE HCL 20 MG/ML VIAL IVP ONE (00:15)
[2018-03-08] MEDS: ALBUTEROL/IPRATROPIUM 3 ML NEB NEB SCH ×4 (01:05→12:56)
[2018-03-08] MEDS: ACETAMINOPHEN(*)1000 MG/100 ML 100 ML IVPB SCH ×2 (01:06→09:44)
[2018-03-08] MEDS: KETOROLAC 15 MG/ML VIAL IVP SCH ×2 (04:25→10:00)
--- NOTE | 2018-03-08 05:53 | RADIOLOGY IMAGING REPORT ---
FACILITY: [facility] PATIENT NAME: Dudley Matthews : 1950 MR: [id number] V: [id number] EXAM DATE: ORDERING PHYSICIAN: JACKIE LUCIA TECHNOLOGIST: Location: [facility] Patient: Dudley Matthews : 1950 Visit/Account:[id number] Date of Sevice: 03/08/2018 AP CHEST 03/08/2018 6:00 AM. INDICATION: Look for hemothorax with rib fractures x 4 COMPARISON: Yesterday. FINDINGS: Lungs are well-expanded. Mild scarring/atelectasis. No pleural effusion or pneumothorax. Heart size is unchanged. Rib fractures better demonstrated on prior examinations. IMPRESSION: Mild scarring/atelectasis with no evidence of hemothorax or pneumothorax. Report Dictated By: Navneet Marquez MD at 03/08/2018 5:47 AM Report E-Signed By: Navneet Marquez MD at 03/08/2018 5:49 AM WSN:[id number]
[2018-03-08 06:09] LABS: PLATELET COUNT, AUTOMATED 156 K/uL (150-450)
[2018-03-08] MEDS ORDERED: FUROSEMIDE 40 MG TAB PO SCH (09:00)
[2018-03-08] MEDS: CARVEDILOL 6.25 MG TAB PO SCH (09:44)
[2018-03-08] MEDS: ENOXAPARIN 30 MG/0.3 ML SYR SC SCH (09:44)
[2018-03-08] MEDS: POLYETHYLENE GLYCOL 17 GM PKT PO SCH (09:44)
[2018-03-08] MEDS: PANTOPRAZOLE SOD 40 MG TABEC PO SCH (09:45)
[2018-03-08] MEDS: LOSARTAN POTASSIUM 50 MG TAB PO SCH (09:45)
[2018-03-08] MEDS: DOCUSATE SODIUM 100 MG CAP PO SCH (09:45)
[2018-03-08] MEDS: GABAPENTIN 100 MG CAP PO SCH (09:45)
--- NOTE | 2018-03-08 10:19 | General Surgery Progress Note ---
Subjective Progress Notes Subjective FVC 1760; Good cough effort; + BM; Kera diet; Pain under great control with multimodal meds; Ambulated Patient Complains of: Neurological: No: Syncope Cardiovascular: No: Chest Pain Respiratory: No: Cough, Shortness of Breath Gastrointestinal: Flatus, Bowel Movement, No Nausea, No Vomiting Genitourinary: No Dysuria Musculoskeletal: No: Impaired Mobility Physical Exam Vital Signs Date Time Temp Pulse Resp B/P (MAP) Pulse Ox O2 Delivery O2 Flow Rate FiO2 03/08/18 07:05 97.8 80 20 150/94 (112) 89 Nasal Cannula 3.0 General Appearance: Alert, Awake, No Acute Distress, Afebrile Neuro: No Gross deficits Eyes: PERRLA ENT: Moist Mucous Membranes Cardiovascular: Normal Rhythm & Peripheral Pulses Respiratory: No Respiratory Distress, Clear to Auscultation Chest: Other (Right chest wall tenderness- minimal; No crepitus ) GI: Soft and Non-Tender Musculoskeletal: No Weakness/Pain Extremities: Warm, Pulses, Perfused, Edema (trace; JASON hose in place) Integumentary: Skin Intact without Lesion / Mass, No Jaundice, No Pallor, No Cyanosis, Other (Right elbow contusion) Psych: Alert & Oriented X3, Appropriate Mood & Affect Result Diagram: 03/08/18 0502 03/08/18 0502 Imaging AP CHEST 03/08/2018 6:00 AM. INDICATION: Look for hemothorax with rib fractures x 4 COMPARISON: Yesterday. FINDINGS: Lungs are well-expanded. Mild scarring/atelectasis. No pleural effusion or pneumothorax. Heart size is unchanged. Rib fractures better demonstrated on prior examinations. IMPRESSION: Mild scarring/atelectasis with no evidence of hemothorax or pneumothorax. Report Dictated By: Navneet Marquez MD at 03/08/2018 5:47 AM Assessment and Plan Problems: (1) Multiple fractures of ribs of right side Status: Acute Assessment & Plan: 03/08/18: Right rib fractures 6-9; Now with excellent pain control on multimodal pain meds; FVC has increased from 900 to 1700; On 3 liters N/C O2 but has baseline home O2 requirement (2) COPD (chronic obstructive pulmonary disease) Status: Chronic Assessment & Plan: 03/08/18: On home medications, inhalers and receiving PRN respiratory treatments; in part related to IV contrast reaction and reactive airway disease. Now back to baseline (3) Multiple contusions Status: Acute Assessment & Plan: 03/08/18: Pain medication as needed; no fractures (4) GERD (gastroesophageal reflux disease) Status: Chronic Assessment & Plan: PPI (5) Depression with anxiety Status: Chronic Assessment & Plan: On Home dose of Xanax (6) Hyponatremia Status: Acute Assessment & Plan: Stable at 133; limit free water; may need to increase Na intake; F/u with PCP (7) Venous stasis dermatitis of both lower extremities Status: Chronic Assessment & Plan: 03/08/18: Now with JASON hose; Needs 20-30 mmHG graded compression stockings, below knee while out of bed to prevent future ulceration and wound healing problems (8) Hypoxia Status: Chronic Assessment & Plan: 03/08/18: On N/C 3 liter o2. Pt uses home O2 therapy and has supplies and portable oxygen concentrator (9) Screening for colon cancer Status: Chronic Assessment & Plan: 03/08/18: Call Dr Demarco office to arrange for a screening colonoscopy; no prior endoscopy performed. (10) Allergic reaction to contrast dye Status: Acute Assessment & Plan: 03/08/18: Treated aggressively in ED; FVCs have improved; has some residual right eye edema; no other sxs at this time; Pt counseling on need to report this in the future before ANY contrasted study (11) Hypertension Status: Chronic Assessment & Plan: 03/18/18: Carvedilol and Lasix restarted with intermittent DBP elevations. Needs PCP followup and adjustments. Hydralazine PRN Central Venous Access Medical Necessity for Access: Hemodynamic Monitoring, IV Access, Medication Administration Condition Need for colon screening. Need to follow up with PCP for HTN and Hyponatremia Time Spent: > 30 min (Exam, counseling and documentation) Exam Sepsis Risk: No Definite Risk Problem Qualifiers (1) Multiple fractures of ribs of right side: Encounter type: subsequent encounter Fracture type: closed (2) Allergic reaction to contrast dye: Encounter type: initial encounter Qualified Codes: T50.8X5A - Adverse effect of diagnostic agents, initial encounter JACKIE LUCIA MD Mar 08, 2018 09:30
[2018-03-08] MEDS ORDERED: POLY17PO21 PO (10:37)
[2018-03-08] MEDS ORDERED: IBUP600T22 PO (10:37)
[2018-03-08] MEDS ORDERED: TRAM-420 PO (10:37)
[2018-03-08] MEDS ORDERED: GABA-547 PO (10:37)
[2018-03-08] MEDS ORDERED: ACET-2146 PO (10:37)
[2018-03-08] MEDS ORDERED: DOCU-202 PO (10:37)
--- NOTE | 2018-03-08 10:51 | Hospitalist Depart ---
Discharge Summary Reason for Hosp/Final Diag: (1) Multiple fractures of ribs of right side Status: Acute Hospital Course & Plan: 03/08/18: Right rib fractures 6-9; Now with excellent pain control on multimodal pain meds; FVC has increased from 900 to 1700; On 3 liters N/C O2 but has baseline home O2 requirement (2) COPD (chronic obstructive pulmonary disease) Status: Chronic Hospital Course & Plan: 03/08/18: On home medications, inhalers and receiving PRN respiratory treatments; in part related to IV contrast reaction and reactive airway disease. Now back to baseline (3) Multiple contusions Status: Acute Hospital Course & Plan: 03/08/18: Pain medication as needed; no fractures (4) GERD (gastroesophageal reflux disease) Status: Chronic Hospital Course & Plan: PPI (5) Depression with anxiety Status: Chronic Hospital Course & Plan: On Home dose of Xanax (6) Hyponatremia Status: Acute Hospital Course & Plan: Stable at 133; limit free water; may need to increase Na intake; F/u with PCP (7) Venous stasis dermatitis of both lower extremities Status: Chronic Hospital Course & Plan: 03/08/18: Now with JASON hose; Needs 20-30 mmHG graded compression stockings, below knee while out of bed to prevent future ulceration and wound healing problems (8) Hypoxia Status: Chronic Hospital Course & Plan: 03/08/18: On N/C 3 liter o2. Pt uses home O2 therapy and has supplies and portable oxygen concentrator (9) Screening for colon cancer Status: Chronic Hospital Course & Plan: 03/08/18: Call Dr Ruggiero office to arrange for a screening colonoscopy; no prior endoscopy performed. (10) Allergic reaction to contrast dye Status: Acute Hospital Course & Plan: 03/08/18: Treated aggressively in ED; FVCs have improved ; has some residual right eye edema; no other sxs at this time; Pt counseling on need to report this in the future before ANY contrasted study (11) Hypertension Status: Chronic Hospital Course & Plan: 03/18/18: Carvedilol and Lasix restarted with intermittent DBP elevations. Needs PCP followup and adjustments. Hydralazine PRN Departure Weight (Pounds): 194 Weight (Ounces): 6.0 Result Diagram: 03/08/18 0502 03/08/18 0502 Condition: Improved Discharge: Home Discharge Code Status: Full Code Time Spent: > 30 min Discharge Instructions Home Meds Active Scripts Ibuprofen (IBUPROFEN) 600 Mg Tablet, 1 TAB PO Q8H for 30 Days, #90 TAB Prov:JACKIE LUCIA MD 03/08/18 Acetaminophen 500 Mg Tab (ACETAMINOPHEN EXTRA STRENGTH) 500 Mg Tablet, 1000 MG PO Q8H for 30 Days, #90 TAB 2 Refills Prov:JACKIE LUCIA MD 03/08/18 Polyethylene Glycol 3350 (POLYETHYLENE GLYCOL 3350) 17 Gm Powd.pack, 17 GM PO BID for constip[ation prevention for 30 Days, #60 PACKET 2 Refills Prov:JACKIE LUCIA MD 03/08/18 Tramadol Hcl (TRAMADOL HCL) 50 Mg Tablet, 50 MG PO Q6H Y for PAIN for 30 Days, # 40 1 Refill Prov:JACKIE LUCIA MD 03/08/18 Gabapentin (GABAPENTIN) 100 Mg Capsule, 100 MG PO TID for PAIN for 30 Days, #90 CAPSULE 1 Refill Prov:JACKIE LUCIA MD 03/08/18 Docusate Sodium (DOCUSATE SODIUM) 100 Mg Capsule, 100 MG PO BID for Constipation prevention for 30 Days, #60 CAPSULE 3 Refills Prov:JACKIE LUCIA MD 03/08/18 Fluticasone/Salmeterol (ADVAIR 500-50 DISKUS) 1 Each Disk.w.dev, 1 EACH IH BID, #1 DISK 5 Refills Prov:TOMMY ELIZABETH MD 01/06/18 Losartan Potassium (LOSARTAN POTASSIUM) 100 Mg Tablet, 100 MG PO QDAY, #90 TAB 3 Refills Prov:TOMMY ELIZABETH MD 12/20/17 Pantoprazole Sodium (PANTOPRAZOLE SODIUM) 40 Mg Tablet.dr, 40 MG PO QDAY, #90 TAB.SR 4 Refills Prov:TOMMY ELIZABETH MD 11/04/17 Albuterol Sulfate 0.083% (ALBUTEROL SULFATE 0.083%) 2.5 Mg/3 Ml Vial.neb, 2.5 MG INH Q4-6H Y for WHEEZING, #25 INH Prov:SHANEL SELBY DO 10/20/17 Escitalopram Oxalate (ESCITALOPRAM OXALATE) 20 Mg Tablet, 20 MG PO QDAY, #30 TAB 4 Refills Prov:TOMMY ELIZABETH MD 07/18/17 Furosemide (FUROSEMIDE) 40 Mg Tablet, 1 TAB PO QODAY, #30 TAB 4 Refills Prov:TOMMY ELIZABETH MD 07/18/17 Albuterol Sulfate (PROVENTIL HFA) 6.7 Gm Inh, 2 PUFF INH 3-4XD Y for SHORTNESS OF BREATH, #1 INH 4 Refills Prov:TOMMY ELIZABETH MD 07/18/17 Alprazolam (XANAX) 0.5 Mg Tablet, 1 TAB PO QDAY Y for ANXIETY, #30 TAB Prov:TOMMY ELIZABETH MD 07/18/17 Ipratropium/Albuterol Sulfate (IPRAT-ALBUT 0.5-3(2.5) MG/3 ML) 3 Ml Ampul.neb, 3 ML IH Q4-6H Y for SHORTNESS OF BREATH, #100 VIAL 4 Refills Prov:TOMMY ELIZABETH MD 07/18/17 Carvedilol (CARVEDILOL) 12.5 Mg Tablet, 0.5 TAB PO BID, #30 TAB 4 Refills Prov:TOMMY ELIZABETH MD 07/18/17 Discontinued Reported Medications Calcium Carbonate (TUMS) 200 Mg Tab.chew, 200 MG PO PRN, TAB.CHEW 09/04/16 Discontinued Scripts Azithromycin (ZITHROMAX) 250 Mg Tablet, 1 TAB PO QDAY, #4 TAB Prov:ROBERT SELBYSA V DO 10/20/17 Prednisone (PREDNISONE) 20 Mg Tablet, 20 MG PO BID, #10 TAB Prov:ROHITORAROBERTSHANEL V DO 10/20/17 Diet: Diabetic Activity: As Tolerated, No Heavy Lifting (for 4 weeks greater than 20 pounds) Special Instructions: Need for colon screening- call for an appointment with Dr. Ruggiero [phone]. Also can followup with Dr Ruggiero for his rib fractures. Need for Dental followup due to multiple dental caries and to prevent infection. Need to follow up with Dr Elizabeth for Hypertension and Hyponatremia. [place] to purchase Compression stockings, below the knee, 20-30 mm Hg graded to prevent chronic venous stasis ulcers Resume home oxygen therapy to maintain saturation greater than 90% Multimodal pain medication with scheduled tylenol, gabapentin and ibuprofen. May take Tramadol for breakthrough pain only. Wean off as tolerated- first stopping Tramadol, then Gabapentin (Neurontin) then Ibuprofen and last the tylenol. Copies to: TOMMY ELIZABETH MD; KARINA RUGGIERO MD Venous Thromboembolism VTE Risk Physician Assess for VTE Risk: Yes Patient's VTE Risk: High VTE Diagnostic Test 2 Days Prior to Admit: No Antithrombotics Is Pt On Any Antithrombotics?: Yes (and SCDs) Problem Qualifiers (1) Multiple fractures of ribs of right side: Encounter type: subsequent encounter Fracture type: closed (2) Allergic reaction to contrast dye: Encounter type: initial encounter Qualified Codes: T50.8X5A - Adverse effect of diagnostic agents, initial encounter JACKIE LUCIA MD Mar 08, 2018 10:51
== END 2018-03-08 13:25 | disposition home or self-care (01) | DRG 184 ==
LOC: ER 02:59 → ICU 05:50 → MED 19:15
PROVIDERS: ADMIT Surgery; ATTEND Surgery
DX: S22.41XA Multiple fractures of ribs, right side, initial encounter for closed fracture (principal); E87.1 Hypo-osmolality and hyponatremia; I10 Essential (primary) hypertension; T50.8X5A Adverse effect of diagnostic agents, initial encounter; J42 Unspecified chronic bronchitis; I87.8 Other specified disorders of veins; R09.02 Hypoxemia; F41.8 Other specified anxiety disorders; L50.9 Urticaria, unspecified; K21.9 Gastro-esophageal reflux disease without esophagitis; Z96.643 Presence of artificial hip joint, bilateral; Z88.8 Allergy status to other drugs, medicaments and biological substances; W54.1XXA Struck by dog, initial encounter; Y92.488 Other paved roadways as the place of occurrence of the external cause; Y99.8 Other external cause status
CPT/HCPCS: 36415; 71045; 71046; 71100; 74177; 80320; 82040; 82247; 82310; 82374; 82435; 82565; 82947; 83735; 84075; 84100; 84132; 84155; 84295; 84450; 84460; 84520; 85025; 94640; 99291; J0131; J0171; J0360; J1200; J1650; J1885; J2270; J2360; J2930; J3490; J7030; Q9967

== ENCOUNTER 2018-03-13 19:25 | Emergency (ER) | payer MEDICARE ==
[2018-03-07 10:05] VITALS: Wt 86.2 kg
[~2018-03-13 19:25] MED LIST changes: +ACET-2146 PO; +DOCU-202 PO; +GABA-547 PO; +IBUP600T22 PO; +POLY17PO21 PO; +TRAM-420 PO
--- NOTE | 2018-03-13 19:36 | ER Report ---
History and Physical Time Seen By MD: 19:35 HPI/ROS CHIEF COMPLAINT: Feeling hot, right hip pain HISTORY OF PRESENT ILLNESS: 67-year-old male patient presents to emergency room with complaint of feeling hot and right hip pain. Patient states he was admitted to the hospital approximately one week ago after a fall which resulted in several broken ribs. Patient states that he was in overnight, discharged and felt good that day in the next day. Patient states he's had worsening pain in the right hip has developed since then. He also states that in the last 48 hours he's felt really hot. He states this been having sweats. He denies any nausea, vomiting or diarrhea. Patient states that he has stopped taking his pain medication. He states that the pain in his hip seems to be towards the back of the hip. He states there is nothing seems to make the pain better or worse. REVIEW OF SYSTEMS: Respiratory: Patient states he has had a little bit of a cough. Cardiovascular: No chest pain, no palpitations. Gastrointestinal: No vomiting, no abdominal pain. Musculoskeletal: As noted above Allergies: Coded Allergies: iopamidol (Verified Allergy, Severe, EYE SWELLING AND HIVES, 03/07/18) acetylcysteine (Verified Adverse Reaction, Intermediate, bronchospasms, 03/07/18) Uncoded Allergies: iv dye (Allergy, Severe, redness, swelling of face, hives, 03/07/18) Home Meds Active Scripts Hydrocodone Bit/Acetaminophen (HYDROCODON-ACETAMINOPHEN 5-325) 1 Each Tablet, 1 EACH PO Q4-6H Y for PAIN, #12 TAB Prov:SANTIAGO PEOPLES 03/13/18 Cyclobenzaprine Hcl (CYCLOBENZAPRINE HCL) 10 Mg Tablet, 10 MG PO TID Y for MUSCLE SPASMS, #15 TAB Prov:SANTIAGO PEOPLES 03/13/18 Ibuprofen (IBUPROFEN) 600 Mg Tablet, 1 TAB PO Q8H for 30 Days, #90 TAB Prov:JACKIE LUCIA MD 03/08/18 Acetaminophen 500 Mg Tab (ACETAMINOPHEN EXTRA STRENGTH) 500 Mg Tablet, 1000 MG PO Q8H for 30 Days, #90 TAB 2 Refills Prov:JACKIE LUCIA MD 03/08/18 Polyethylene Glycol 3350 (POLYETHYLENE GLYCOL 3350) 17 Gm Powd.pack, 17 GM PO BID for constip[ation prevention for 30 Days, #60 PACKET 2 Refills Prov:JACKIE LUCIA MD 03/08/18 Tramadol Hcl (TRAMADOL HCL) 50 Mg Tablet, 50 MG PO Q6H Y for PAIN for 30 Days, # 40 1 Refill Prov:JACKIE LUCIA MD 03/08/18 Gabapentin (GABAPENTIN) 100 Mg Capsule, 100 MG PO TID for PAIN for 30 Days, #90 CAPSULE 1 Refill Prov:JACKIE LUCIA MD 03/08/18 Docusate Sodium (DOCUSATE SODIUM) 100 Mg Capsule, 100 MG PO BID for Constipation prevention for 30 Days, #60 CAPSULE 3 Refills Prov:JACKIE LUCIA MD 03/08/18 Fluticasone/Salmeterol (ADVAIR 500-50 DISKUS) 1 Each Disk.w.dev, 1 EACH IH BID, #1 DISK 5 Refills Prov:TOMMY ELIZABETH MD 01/06/18 Losartan Potassium (LOSARTAN POTASSIUM) 100 Mg Tablet, 100 MG PO QDAY, #90 TAB 3 Refills Prov:TOMMY ELIZABETH MD 12/20/17 Pantoprazole Sodium (PANTOPRAZOLE SODIUM) 40 Mg Tablet.dr, 40 MG PO QDAY, #90 TAB.SR 4 Refills Prov:TOMMY ELIZABETH MD 11/04/17 Albuterol Sulfate 0.083% (ALBUTEROL SULFATE 0.083%) 2.5 Mg/3 Ml Vial.neb, 2.5 MG INH Q4-6H Y for WHEEZING, #25 INH Prov:SHANEL SELBY DO 10/20/17 Escitalopram Oxalate (ESCITALOPRAM OXALATE) 20 Mg Tablet, 20 MG PO QDAY, #30 TAB 4 Refills Prov:TOMMY ELIZABETH MD 07/18/17 Furosemide (FUROSEMIDE) 40 Mg Tablet, 1 TAB PO QODAY, #30 TAB 4 Refills Prov:TOMMY ELIZABETH MD 07/18/17 Albuterol Sulfate (PROVENTIL HFA) 6.7 Gm Inh, 2 PUFF INH 3-4XD Y for SHORTNESS OF BREATH, #1 INH 4 Refills Prov:TOMMY ELIZABETH MD 07/18/17 Alprazolam (XANAX) 0.5 Mg Tablet, 1 TAB PO QDAY Y for ANXIETY, #30 TAB Prov:TOMMY ELIZABETH MD 07/18/17 Ipratropium/Albuterol Sulfate (IPRAT-ALBUT 0.5-3(2.5) MG/3 ML) 3 Ml Ampul.neb, 3 ML IH Q4-6H Y for SHORTNESS OF BREATH, #100 VIAL 4 Refills Prov:TOMMY ELIZABETH MD 07/18/17 Carvedilol (CARVEDILOL) 12.5 Mg Tablet, 0.5 TAB PO BID, #30 TAB 4 Refills Prov:TOMMY ELIZABETH MD 07/18/17 Discontinued Reported Medications Calcium Carbonate (TUMS) 200 Mg Tab.chew, 200 MG PO PRN, TAB.CHEW 09/04/16 Discontinued Scripts Azithromycin (ZITHROMAX) 250 Mg Tablet, 1 TAB PO QDAY, #4 TAB Prov:SHANEL SELBY V DO 10/20/17 Prednisone (PREDNISONE) 20 Mg Tablet, 20 MG PO BID, #10 TAB Prov:SHANEL SELBY V DO 10/20/17 Past Medical/Surgical History Patient has a past medical history of cardiomyopathy, hypertension, asthma, fractured ribs, pneumonia, COPD, reflux, occasional alcohol use. Patient has a past surgical history of back surgery, bilateral hip replacement. Patient has a family medical history of diabetes, stroke, CAD. Reviewed Nurses Notes: Yes Hx Smoking: No Smoking Status: Never Smoker Exposure to Second Hand Smoke?: No (worked in [employer]) Hx Substance Use Disorder: No Hx Alcohol Use: Yes (states occasional) Constitutional Vital Sign - Last 24 Hours 03/13/18 19:38 Temp 97.7 Pulse 101 Resp 22 B/P (MAP) 207/128 Pulse Ox 94 O2 Delivery Nasal Cannula Physical Exam General Appearance: The patient is alert, has no immediate need for airway protection and no current signs of toxicity. Respiratory: Chest is tender along the right side where he had his ribs fractured, lungs are clear to auscultation. Cardiac: regular rate and rhythm Gastrointestinal: Abdomen is soft and non tender, no masses, bowel sounds normal. Musculoskeletal: Neck: Neck is supple and non tender. Extremities have full range of motion and are non tender. I am unable to palpate any tender locations along the right hip. Skin: No rashes or lesions. DIFFERENTIAL DIAGNOSIS: After history and physical exam differential diagnosis was considered for hip fracture, compression fracture of the vertebrae, pneumonia. Medical Decision Making Data Points Result Diagram: 03/13/18194203/13/181942 Laboratory Hematology Test 03/13/18 19:43 Red Blood Count 5.88 M/uL (4.00-5.60) Mean Corpuscular Volume 85.8 fL (80.0-96.0) Mean Corpuscular Hemoglobin 30.0 pg (26.0-33.0) Mean Corpuscular Hemoglobin Concent 35.0 g/dL (32.0-36.0) Red Cell Distribution Width 13.6 % (11.5-14.5) Mean Platelet Volume 7.5 fL (7.2-11.1) Neutrophils (%) (Auto) 80.7 % (39.4-72.5) Lymphocytes (%) (Auto) 8.1 % (17.6-49.6) Monocytes (%) (Auto) 9.7 % (4.1-12.4) Eosinophils (%) (Auto) 0.3 % (0.4-6.7) Basophils (%) (Auto) 1.2 % (0.3-1.4) Nucleated RBC Relative Count (auto) 0.1 /100WBC Neutrophils # (Auto) 7.8 K/uL (2.0-7.4) Lymphocytes # (Auto) 0.8 K/uL (1.3-3.6) Monocytes # (Auto) 0.9 K/uL (0.3-1.0) Eosinophils # (Auto) 0.0 K/uL (0.0-0.5) Basophils # (Auto) 0.1 K/uL (0.0-0.1) Nucleated RBC Absolute Count (auto) 0.01 K/uL Urine Color Straw Urine Clarity Clear Urine pH 7.0 pH (4.8-9.5) Urine Specific [place] 1.002 Urine Protein Negative mg/dL (NEGATIVE) Urine Glucose (UA) Negative mg/dL (NEGATIVE) Urine Ketones Negative mg/dL (NEGATIVE) Urine Blood Negative (NEGATIVE) Urine Nitrite Negative (NEGATIVE) Urine Bilirubin Negative (NEGATIVE) Urine Urobilinogen Negative mg/dL (0.2-1.9) Urine Leukocyte Esterase Negative (NEGATIVE) Urine RBC None /HPF (0-2/HPF) Urine WBC <1 /HPF (0-5/HPF) Urine Squamous Epithelial Cells None /LPF (</=FEW) Urine Bacteria Negative /HPF (NONE-FEW) Urine Mucus None /HPF (NONE-FEW) Sodium Level 130 mmol/L (137-145) Potassium Level 4.2 mmol/L (3.5-5.0) Chloride Level 88 mmol/L (98-107) Carbon Dioxide Level 33 mmol/L (22-30) Blood Urea Nitrogen 16 mg/dl (9-21) Creatinine 0.90 mg/dl (0.66-1.25) Glomerular Filtration Rate Calc > 60.0 Random Glucose 103 mg/dl (75-110) Calcium Level 9.3 mg/dl (8.4-10.2) Total Bilirubin 1.1 mg/dl (0.2-1.3) Aspartate Amino Transf (AST/SGOT) 56 U/L (0-35) Alanine Aminotransferase (ALT/SGPT) 43 U/L (0-56) Alkaline Phosphatase 67 U/L (0-126) Troponin I < 0.012 ng/ml Total Protein 8.1 g/dl (6.3-8.2) Albumin 4.6 g/dl (3.5-5.0) Chemistry Test 03/13/18 19:43 White Blood Count 9.6 k/uL (4.5-11.0) Red Blood Count 5.88 M/uL (4.00-5.60) Hemoglobin 17.7 g/dL (14.0-18.0) Hematocrit 50.5 % (42.0-52.0) Mean Corpuscular Volume 85.8 fL (80.0-96.0) Mean Corpuscular Hemoglobin 30.0 pg (26.0-33.0) Mean Corpuscular Hemoglobin Concent 35.0 g/dL (32.0-36.0) Red Cell Distribution Width 13.6 % (11.5-14.5) Platelet Count 205 K/uL (150-450) Mean Platelet Volume 7.5 fL (7.2-11.1) Neutrophils (%) (Auto) 80.7 % (39.4-72.5) Lymphocytes (%) (Auto) 8.1 % (17.6-49.6) Monocytes (%) (Auto) 9.7 % (4.1-12.4) Eosinophils (%) (Auto) 0.3 % (0.4-6.7) Basophils (%) (Auto) 1.2 % (0.3-1.4) Nucleated RBC Relative Count (auto) 0.1 /100WBC Neutrophils # (Auto) 7.8 K/uL (2.0-7.4) Lymphocytes # (Auto) 0.8 K/uL (1.3-3.6) Monocytes # (Auto) 0.9 K/uL (0.3-1.0) Eosinophils # (Auto) 0.0 K/uL (0.0-0.5) Basophils # (Auto) 0.1 K/uL (0.0-0.1) Nucleated RBC Absolute Count (auto) 0.01 K/uL Urine Color Straw Urine Clarity Clear Urine pH 7.0 pH (4.8-9.5) Urine Specific [place] 1.002 Urine Protein Negative mg/dL (NEGATIVE) Urine Glucose (UA) Negative mg/dL (NEGATIVE) Urine Ketones Negative mg/dL (NEGATIVE) Urine Blood Negative (NEGATIVE) Urine Nitrite Negative (NEGATIVE) Urine Bilirubin Negative (NEGATIVE) Urine Urobilinogen Negative mg/dL (0.2-1.9) Urine Leukocyte Esterase Negative (NEGATIVE) Urine RBC None /HPF (0-2/HPF) Urine WBC <1 /HPF (0-5/HPF) Urine Squamous Epithelial Cells None /LPF (</=FEW) Urine Bacteria Negative /HPF (NONE-FEW) Urine Mucus None /HPF (NONE-FEW) Glomerular Filtration Rate Calc > 60.0 Calcium Level 9.3 mg/dl (8.4-10.2) Total Bilirubin 1.1 mg/dl (0.2-1.3) Aspartate Amino Transf (AST/SGOT) 56 U/L (0-35) Alanine Aminotransferase (ALT/SGPT) 43 U/L (0-56) Alkaline Phosphatase 67 U/L (0-126) Troponin I < 0.012 ng/ml Total Protein 8.1 g/dl (6.3-8.2) Albumin 4.6 g/dl (3.5-5.0) Urinalysis Test 03/13/18 19:43 Urine Color Straw Urine Clarity Clear Urine pH 7.0 pH (4.8-9.5) Urine Specific [place] 1.002 Urine Protein Negative mg/dL (NEGATIVE) Urine Glucose (UA) Negative mg/dL (NEGATIVE) Urine Ketones Negative mg/dL (NEGATIVE) Urine Blood Negative (NEGATIVE) Urine Nitrite Negative (NEGATIVE) Urine Bilirubin Negative (NEGATIVE) Urine Urobilinogen Negative mg/dL (0.2-1.9) Urine Leukocyte Esterase Negative (NEGATIVE) Urine RBC None /HPF (0-2/HPF) Urine WBC <1 /HPF (0-5/HPF) Urine Squamous Epithelial Cells None /LPF (</=FEW) Urine Bacteria Negative /HPF (NONE-FEW) Urine Mucus None /HPF (NONE-FEW) EKG/Imaging Imaging CHEST PA AND LAT HISTORY: Subjective fever. Recent rib fractures. COMPARISON: Chest x-ray dated 03/08/2018. FINDINGS: Lines/tubes: None. Lungs/pleura: Stable mild streaky atelectasis or scarring in the lung bases. No consolidation, pleural effusion, or pneumothorax. Heart: Negative. Mediastinum: Negative. Bony structures/body wall: Healing right lateral rib fractures. Degenerative changes in the spine. IMPRESSION: No acute cardiopulmonary process. Report Dictated By: Cristo Desir MD at 03/13/2018 8:49 PM Report E-Signed By: Cristo Desir MD at 03/13/2018 8:52 PM HIP RIGHT Indication: Right hip pain. Comparison: 03/07/2018. Findings: AP view of the pelvis. AP and frog-leg views of the right hip. Stable bilateral hip arthroplasty with eccentric positioning of the femoral head components suggestive of polyethylene wear. Stable screw fragment medial to the right hip arthroplasty. No perihardware lucency. No evidence of acute fracture or dislocation. Arterial calcifications. Impression: 1. No evidence of acute fracture or dislocation. 2. Stable bilateral hip arthroplasty with eccentric positioning of the femoral head components suggestive of polyethylene wear. 3. Stable screw fragment medial to the right hip arthroplasty. Report Dictated By: Cristo Desir MD at 03/13/2018 8:45 PM Report E-Signed By: Cristo Desir MD at 03/13/2018 8:48 PM LUMBAR SPINE 4 VIEWS INDICATION: Low back pain. COMPARISON: CT abdomen and pelvis dated 03/07/2018. FINDINGS: 4 views of the lumbar spine. Multilevel degenerative disc disease and facet hypertrophy. 3 mm of retrolisthesis of L3 over L4 and L4 over L5. Otherwise normal alignment. Stable mild chronic superior endplate compression fracture of L3. No new fractures. Arterial calcifications. Partially imaged bilateral hip arthroplasty. IMPRESSION: Multilevel degenerative disc disease and facet hypertrophy with mild grade 1 retrolisthesis of L3 over L4 and L4 over L5. Stable mild chronic L3 compression fracture. No new acute abnormality. Report Dictated By: Cristo Desir MD at 03/13/2018 8:52 PM Report E-Signed By: Cristo Desir MD at 03/13/2018 8:57 PM ED Course/Re-evaluation ED Course Patient is admitted and examined, history and physical were obtained. Differential diagnoses were considered. On examination patient was complaining of pain, I was unable to palpate the location of the pain in the right hip. Patient is also feeling as if he was burning up. Patient had a normal temperature. A CBC, CMP, troponin, EKG, chest x-ray, lumbar x-ray, right hip x- ray were done. EKG showed a normal sinus rhythm, troponin was negative, CBC and CMP were unremarkable, very consistent with his previous labs. Chest x-ray showed no acute cardiopulmonary processes, right hip x-ray showed no acute findings. Lumbar x-ray did show some retrolisthesis of the L3-L4, L4-L5. I believe is likely the cause of pain in the right hip. I discussed this with the patient and his daughter. We will go ahead and discharge him home. We'll go ahead and treat him with a lens glide pain medication as well as a muscle relaxer. He is to follow-up with his primary care provider next week. Patient's blood pressure was elevated, and with those likely secondary to pain which will be improved as we treat his pain. Discusses patient and his daughter and they verbalized understanding and agreement with plan. Decision to Disposition Date: Mar 13, 2018 Decision to Disposition Time: 21:30 Depart Departure Latest Vital Signs Vital Signs Date Time Temp Pulse Resp B/P (MAP) Pulse Ox O2 Delivery O2 Flow Rate FiO2 03/13/18 19:38 97.7 101 22 207/128 94 Nasal Cannula Impression: Primary Impression: Sciatica Condition: Improved Disposition: HOME OR SELF-CARE Referrals: TOMMY ELIZABETH MD (PCP) JODY ALEJANDRA MD New Scripts Hydrocodone Bit/Acetaminophen (HYDROCODON-ACETAMINOPHEN 5-325) 1 Each Tablet 1 EACH PO Q4-6H Y for PAIN, #12 TAB Prov: SANTIAGO PEOPLES [employer] 03/13/18 Cyclobenzaprine Hcl (CYCLOBENZAPRINE HCL) 10 Mg Tablet 10 MG PO TID Y for MUSCLE SPASMS, #15 TAB Prov: SANTIAGO PEOPLES [employer] 03/13/18 Patient Instructions: Sciatica (ED) Additional Instructions: I don't know why you are having the hot flashes. I would like you to follow up with Dr. Elizabeth for further work up for your high blood pressure and your feeling hot. Limit activity by pain. Continue with your normal medications. Return to the ER if condition worsens. I would like you to see Dr. Alejandra about your back as I think that is the source of the pain in your hip. Problem Qualifiers Primary Impression: Sciatica Laterality: right Qualified Codes: M54.31 - Sciatica, right side SANTIAGO PEOPLES [employer] Mar 13, 2018 19:36
[2018-03-13 20:10] LABS: PLATELET COUNT, AUTOMATED 205 K/uL (150-450)
--- NOTE | 2018-03-13 20:52 | RADIOLOGY IMAGING REPORT ---
FACILITY: [facility] [place] PATIENT NAME: Dudley Matthews : 1950 MR: [id number] V: [id number] EXAM DATE: ORDERING PHYSICIAN: SANTIAGO PEOPLES TECHNOLOGIST: Location: [facility] Patient: Dudley Matthews : 1950 Visit/Account:[id number] Date of Sevice: 03/13/2018 HIP RIGHT Indication: Right hip pain. Comparison: 03/07/2018. Findings: AP view of the pelvis. AP and frog-leg views of the right hip. Stable bilateral hip arthroplasty with eccentric positioning of the femoral head components suggestiv e of polyethylene wear. Stable screw fragment medial to the right hip arthroplasty. No perihardware l ucency. No evidence of acute fracture or dislocation. Arterial calcifications. Impression: 1. No evidence of acute fracture or dislocation. 2. Stable bilateral hip arthroplasty with eccentric positioning of the femoral head components sugges tive of polyethylene wear. 3. Stable screw fragment medial to the right hip arthroplasty. Report Dictated By: Cristo Desir MD at 03/13/2018 8:45 PM Report E-Signed By: Cristo Desir MD at 03/13/2018 8:48 PM WSN:[id number]
--- NOTE | 2018-03-13 20:56 | RADIOLOGY IMAGING REPORT ---
[place] [facility] [place] Dudley Matthews : 1950 MR: [id number] V: [id number] EXAM DATE: ORDERING PHYSICIAN: SANTIAGO PEOPLES TECHNOLOGIST: Location: [facility] Patient: Dudley Matthews : 1950 Visit/Account:[id number] Date of Sevice: 03/13/2018 CHEST PA AND LAT HISTORY: Subjective fever. Recent rib fractures. COMPARISON: Chest x-ray dated 03/08/2018. FINDINGS: Lines/tubes: None. Lungs/pleura: Stable mild streaky atelectasis or scarring in the lung bases. No consolidation, pleur al effusion, or pneumothorax. Heart: Negative. Mediastinum: Negative. Bony structures/body wall: Healing right lateral rib fractures. Degenerative changes in the spine. IMPRESSION: No acute cardiopulmonary process. Report Dictated By: Cristo Desir MD at 03/13/2018 8:49 PM Report E-Signed By: Cristo Desir MD at 03/13/2018 8:52 PM WSN:[id number]
--- NOTE | 2018-03-13 21:01 | RADIOLOGY IMAGING REPORT ---
FACILITY: [facility] - [place] PATIENT NAME: Dudley Matthews : 1950 MR: [id number] V: [id number] EXAM DATE: ORDERING PHYSICIAN: SANTIAGO PEOPLES TECHNOLOGIST: Location: [facility] - [place] Patient: Dudley Matthews : 1950 Visit/Account:[id number] Date of Sevice: 03/13/2018 LUMBAR SPINE 4 VIEWS INDICATION: Low back pain. COMPARISON: CT abdomen and pelvis dated 03/07/2018. FINDINGS: 4 views of the lumbar spine. Multilevel degenerative disc disease and facet hypertrophy. 3 mm of retrolisthesis of L3 over L4 and L4 over L5. Otherwise normal alignment. Stable mild chronic superior endplate compression fracture of L3. No new fractures. Arterial calcifications. Partially imaged bilateral hip arthroplasty. IMPRESSION: Multilevel degenerative disc disease and facet hypertrophy with mild grade 1 retrolisthes is of L3 over L4 and L4 over L5. Stable mild chronic L3 compression fracture. No new acute abnormalit y. Report Dictated By: Cristo Desir MD at 03/13/2018 8:52 PM Report E-Signed By: Cristo Desir MD at 03/13/2018 8:57 PM WSN:[id number]
--- NOTE | 2018-03-13 21:07 | EKG ---
FACILITY: [facility] - [place] PATIENT NAME: DIOGENES STOLL : [id number] MR: [id number] V: [id number] EXAM DATE: ORDERING PHYSICIAN: SANTIAGO PEOPLES TECHNOLOGIST: JEROME Test Reason : HTN Blood Pressure : / mmHG Vent. Rate : 100 BPM Atrial Rate : 100 BPM P-R Int : 152 ms QRS Dur : 090 ms QT Int : 374 ms P-R-T Axes : 041 -15 024 degrees QTc Int : 482 ms Normal sinus rhythm Inferior infarct , age undetermined Possible Anterior infarct , age undetermined Abnormal ECG When compared with ECG of 20-OCT-2017 14:36, Inferior infarct is now present Nonspecific T wave abnormality has replaced inverted T waves in Anterior leads Confirmed by KARINA BLANCO ([id number]) on 03/14/2018 6:32:22 AM Referred By: Confirmed By:KARINA BLANCO
[2018-03-13 21:20] VITALS: BP 191/122
[2018-03-13] MEDS ORDERED: ACET/HYDROC 5/325MG TH ER ONLY 2 TAB/BOTTLE PO ONE (21:25)
[2018-03-13] MEDS ORDERED: CYCLOBENZAPRINE HCL 10 MG TH PO ONE (21:25)
[2018-03-13] MEDS ORDERED: HYDR-385 PO (21:28)
[2018-03-13] MEDS ORDERED: CYCL10TA29 PO (21:28)
== END 2018-03-13 21:55 | disposition home or self-care (01) ==
LOC: ER 19:42
DX: M54.31 Sciatica, right side (principal); I10 Essential (primary) hypertension; J44.9 Chronic obstructive pulmonary disease, unspecified; K21.9 Gastro-esophageal reflux disease without esophagitis; Z96.643 Presence of artificial hip joint, bilateral; Z79.899 Other long term (current) drug therapy
CPT/HCPCS: 71046; 72120; 81001; 82040; 82247; 82310; 82374; 82435; 82565; 82947; 84075; 84132; 84155; 84295; 84450; 84460; 84484; 84520; 85025; 93005; 99284

== ENCOUNTER 2018-09-04 14:46 | Emergency (ER) | payer MEDICARE ==
[2018-03-07 10:05] VITALS: Wt 86.4 kg
[~2018-09-04 14:46] MED LIST changes: +AMLO-125 PO; -AMLO-96 PO; +CYCL10TA29 PO; +HYDR-385 PO; -LOSA100T67 PO; +LOSA100T75 PO; -LOSA50TA72 PO; +LOSA50TA80 PO; +POLY17PO11 PO; -POLY17PO21 PO
--- NOTE | 2018-09-04 14:56 | ER Report ---
History and Physical Time Seen By MD: 14:56 HPI/ROS CHIEF COMPLAINT: Shortness of breath HISTORY OF PRESENT ILLNESS: This is a 68-year-old male who presents to the emergency department for shortness of breath. Patient states that over the last 2-3 weeks he's had increased shortness of breath. He does have a history of COPD. He states however it's been increasingly difficult for him to ambulate without becoming short of breath. He does use oxygen 24 7. He has also been using his albuterol nebulizer at home for frequently in the last 2-3 days, with minimal relief. He did follow up with his primary care provider, Dr. Dr. Elizabeth today, so solely sent to the ER for further evaluation. No fevers or chills. No nausea or vomiting. No chest pain. No headaches or rashes. REVIEW OF SYSTEMS: Constitutional: No fever, no chills. Eyes: No discharge. ENT: No sore throat. Cardiovascular: No chest pain, no palpitations. Respiratory: As above. Gastrointestinal: No abdominal pain, no vomiting. Genitourinary: No hematuria. Musculoskeletal: No back pain. Skin: No rashes. Neurological: No headache. Allergies: Coded Allergies: iopamidol (Verified Allergy, Severe, EYE SWELLING AND HIVES, 03/07/18) acetylcysteine (Verified Adverse Reaction, Intermediate, bronchospasms, 03/07/18) Uncoded Allergies: iv dye (Allergy, Severe, redness, swelling of face, hives, 03/07/18) Home Meds Active Scripts Prednisone (PREDNISONE) 20 Mg Tablet, 40 MG PO QDAY, #17 TAB 40mg once a day for 4 days. 30mg once a day for 3 days. 20mg once a day for 3 days. 10mg once a day for 2 days. Prov:WILLIE ISLAS LABORATORY DEVELOPMENT TECHNICIAN-BC 09/04/18 Albuterol Sulfate 0.083% (ALBUTEROL SULFATE 0.083%) 2.5 Mg/3 Ml Vial.neb, 2.5 MG INH Q4-6H PRN for SHORTNESS OF BREATH, #20 VIAL Prov:WILLIE ISLAS LABORATORY DEVELOPMENT TECHNICIAN-BC 09/04/18 Escitalopram Oxalate (ESCITALOPRAM OXALATE) 20 Mg Tablet, 20 MG PO QDAY, #90 TAB 1 Refill Prov:TOMMY ELIZABETH MD 06/04/18 Carvedilol (CARVEDILOL) 12.5 Mg Tablet, 1 TAB PO BID, #60 TAB 6 Refills Prov:TOMMY ELIZABETH MD 03/19/18 Hydrocodone Bit/Acetaminophen (HYDROCODON-ACETAMINOPHEN 5-325) 1 Each Tablet, 1 EACH PO Q4-6H PRN for PAIN, #12 TAB Prov:SANTIAGO PEOPLES LABORATORY DEVELOPMENT TECHNICIAN 03/13/18 Cyclobenzaprine Hcl (CYCLOBENZAPRINE HCL) 10 Mg Tablet, 10 MG PO TID PRN for MUSCLE SPASMS, #15 TAB Prov:SANTIAGO PEOPLESP 03/13/18 Ibuprofen (IBUPROFEN) 600 Mg Tablet, 1 TAB PO Q8H for 30 Days, #90 TAB Prov:JACKIE LUCIA MD 03/08/18 Tramadol Hcl (TRAMADOL HCL) 50 Mg Tablet, 50 MG PO Q6H PRN for PAIN for 30 Days, #40 1 Refill Prov:JACKIE LUCIA MD 03/08/18 Gabapentin (GABAPENTIN) 100 Mg Capsule, 100 MG PO TID for PAIN for 30 Days, #90 CAPSULE 1 Refill Prov:JACKIE LUCIA MD 03/08/18 Fluticasone/Salmeterol (ADVAIR 500-50 DISKUS) 1 Each Disk.w.dev, 1 EACH IH BID, #1 DISK 5 Refills Prov:TOMMY ELIZABETH MD 01/06/18 Losartan Potassium (LOSARTAN POTASSIUM) 100 Mg Tablet, 100 MG PO QDAY, #90 TAB 3 Refills Prov:TOMMY ELIZABETH MD 12/20/17 Pantoprazole Sodium (PANTOPRAZOLE SODIUM) 40 Mg Tablet.dr, 40 MG PO QDAY, #90 TAB.SR 4 Refills Prov:TOMMY ELIZABETH MD 11/04/17 Albuterol Sulfate 0.083% (ALBUTEROL SULFATE 0.083%) 2.5 Mg/3 Ml Vial.neb, 2.5 MG INH Q4-6H PRN for WHEEZING, #25 INH Prov:SHANEL SELBY DO 10/20/17 Furosemide (FUROSEMIDE) 40 Mg Tablet, 1 TAB PO QODAY, #30 TAB 4 Refills Prov:TOMMY ELIZABETH MD 12/14/17 Albuterol Sulfate (PROVENTIL HFA) 6.7 Gm Inh, 2 PUFF INH 3-4XD PRN for SHORTNESS OF BREATH, #1 INH 4 Refills Prov:TOMMY ELIZABETH MD 07/18/17 Ipratropium/Albuterol Sulfate (IPRAT-ALBUT 0.5-3(2.5) MG/3 ML) 3 Ml Ampul.neb, 3 ML IH Q4-6H PRN for SHORTNESS OF BREATH, #100 VIAL 4 Refills Prov:TOMMY ELIZABETH MD 07/18/17 Discontinued Scripts Acetaminophen 500 Mg Tab (ACETAMINOPHEN EXTRA STRENGTH) 500 Mg Tablet, 1000 MG PO Q8H for 30 Days, #90 TAB 2 Refills Prov:JACKIE LUCIA MD 03/08/18 Polyethylene Glycol 3350 (POLYETHYLENE GLYCOL 3350) 17 Gm Powd.pack, 17 GM PO BID for constip[ation prevention for 30 Days, #60 PACKET 2 Refills Prov:JACKIE LUCIA MD 03/08/18 Docusate Sodium (DOCUSATE SODIUM) 100 Mg Capsule, 100 MG PO BID for Constipation prevention for 30 Days, #60 CAPSULE 3 Refills Prov:JACKIE LUCIA MD 03/08/18 Past Medical/Surgical History The patient has a past medical and surgical history of cardiomyopathy, congestive heart failure one time, hypertension, bronchitis, wrist or a failure, COPD, pneumonia, continuous oxygen, GERD, rib fractures, wears glasses, bilateral hip replacement, herniated disks, back surgery. 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) Hx Substance Use Disorder: No Hx Alcohol Use: Yes (states occasional) Constitutional Vital Sign - Last 24 Hours 09/04/18 09/04/18 09/04/18 09/04/18 14:52 14:53 15:01 15:07 Temp 98.3 Pulse 66 62 Resp 22 B/P (MAP) 138/85 (102) 138/85 Pulse Ox 84 90 O2 Delivery Nasal Cannula O2 Flow Rate 4.0 09/04/18 09/04/18 09/04/18 09/04/18 15:16 15:30 15:30 15:30 Pulse 63 61 Resp 25 16 B/P (MAP) 152/93 (112) Pulse Ox 91 93 O2 Delivery Nasal Cannula O2 Flow Rate 4.0 09/04/18 09/04/18 09/04/18 09/04/18 15:31 15:46 16:00 16:01 Pulse 60 58 56 Resp 25 17 22 B/P (MAP) 158/86 (110) Pulse Ox 93 09/04/18 09/04/18 09/04/18 09/04/18 16:05 16:05 16:12 16:16 Pulse 55 58 57 Resp 18 18 18 Pulse Ox 92 O2 Delivery Nasal Cannula O2 Flow Rate 3.0 09/04/18 09/04/18 09/04/18 09/04/18 16:30 16:31 17:22 17:22 Pulse 57 59 Resp 19 18 B/P (MAP) 163/97 (119) Pulse Ox 90 O2 Delivery Nasal Cannula O2 Flow Rate 4.0 09/04/18 17:28 Pulse 59 Resp 16 Physical Exam General Appearance: The patient is alert, has no immediate need for airway protection and no signs of toxicity. Eyes: Pupils equal and round no pallor or injection. ENT, Mouth: Mucous membranes are dry. Respiratory: Diminished throughout, and expiratory wheezes in all [place]. Cardiovascular: Regular rate and rhythm, distant, no murmurs, clicks or rubs. Gastrointestinal: Abdomen is soft and non tender, no masses, bowel sounds normal. Neurological: Alert and oriented 4. Moving all extremities. Following all commands. No focal neuro deficits. Skin: Warm and dry, no rashes. Musculoskeletal: Neck is supple non tender. Extremities are nontender, nonswollen and have full range of motion. DIFFERENTIAL DIAGNOSIS: After history and physical exam differential diagnosis was considered for shortness of breath including but not limited to pulmonary infectious process, COPD, asthma, pulmonary embolus and congestive heart failure. Medical Decision Making Data Points Result Diagram: 09/04/18 1503 09/04/18 1503 Laboratory Hematology Test 09/04/18 15:03 Red Blood Count 5.56 M/uL (4.00-5.60) Mean Corpuscular Volume 86.1 fL (80.0-96.0) Mean Corpuscular Hemoglobin 29.5 pg (26.0-33.0) Mean Corpuscular Hemoglobin Concent 34.3 g/dL (32.0-36.0) Red Cell Distribution Width 13.5 % (11.5-14.5) Mean Platelet Volume 7.9 fL (7.2-11.1) Neutrophils (%) (Auto) 79.3 % (39.4-72.5) Lymphocytes (%) (Auto) 7.0 % (17.6-49.6) Monocytes (%) (Auto) 8.6 % (4.1-12.4) Eosinophils (%) (Auto) 4.3 % (0.4-6.7) Basophils (%) (Auto) 0.8 % (0.3-1.4) Nucleated RBC Relative Count (auto) 0.1 /100WBC Neutrophils # (Auto) 5.4 K/uL (2.0-7.4) Lymphocytes # (Auto) 0.5 K/uL (1.3-3.6) Monocytes # (Auto) 0.6 K/uL (0.3-1.0) Eosinophils # (Auto) 0.3 K/uL (0.0-0.5) Basophils # (Auto) 0.1 K/uL (0.0-0.1) Nucleated RBC Absolute Count (auto) 0.01 K/uL Sodium Level 134 mmol/L (137-145) Potassium Level 4.4 mmol/L (3.5-5.0) Chloride Level 96 mmol/L (98-107) Carbon Dioxide Level 32 mmol/L (22-30) Blood Urea Nitrogen 14 mg/dl (9-21) Creatinine 0.80 mg/dl (0.66-1.25) Glomerular Filtration Rate Calc > 60.0 Random Glucose 136 mg/dl (75-110) Calcium Level 9.2 mg/dl (8.4-10.2) Total Bilirubin 1.5 mg/dl (0.2-1.3) Aspartate Amino Transf (AST/SGOT) 39 U/L (0-35) Alanine Aminotransferase (ALT/SGPT) 37 U/L (0-56) Alkaline Phosphatase 54 U/L (0-126) Troponin I < 0.012 ng/ml B-Type Natriuretic Peptide 132 pg/ml (0-100) Total Protein 7.7 g/dl (6.3-8.2) Albumin 4.3 g/dl (3.5-5.0) Chemistry Test 09/04/18 15:03 White Blood Count 6.8 k/uL (4.5-11.0) Red Blood Count 5.56 M/uL (4.00-5.60) Hemoglobin 16.4 g/dL (14.0-18.0) Hematocrit 47.9 % (42.0-52.0) Mean Corpuscular Volume 86.1 fL (80.0-96.0) Mean Corpuscular Hemoglobin 29.5 pg (26.0-33.0) Mean Corpuscular Hemoglobin Concent 34.3 g/dL (32.0-36.0) Red Cell Distribution Width 13.5 % (11.5-14.5) Platelet Count 139 K/uL (150-450) Mean Platelet Volume 7.9 fL (7.2-11.1) Neutrophils (%) (Auto) 79.3 % (39.4-72.5) Lymphocytes (%) (Auto) 7.0 % (17.6-49.6) Monocytes (%) (Auto) 8.6 % (4.1-12.4) Eosinophils (%) (Auto) 4.3 % (0.4-6.7) Basophils (%) (Auto) 0.8 % (0.3-1.4) Nucleated RBC Relative Count (auto) 0.1 /100WBC Neutrophils # (Auto) 5.4 K/uL (2.0-7.4) Lymphocytes # (Auto) 0.5 K/uL (1.3-3.6) Monocytes # (Auto) 0.6 K/uL (0.3-1.0) Eosinophils # (Auto) 0.3 K/uL (0.0-0.5) Basophils # (Auto) 0.1 K/uL (0.0-0.1) Nucleated RBC Absolute Count (auto) 0.01 K/uL Glomerular Filtration Rate Calc > 60.0 Calcium Level 9.2 mg/dl (8.4-10.2) Total Bilirubin 1.5 mg/dl (0.2-1.3) Aspartate Amino Transf (AST/SGOT) 39 U/L (0-35) Alanine Aminotransferase (ALT/SGPT) 37 U/L (0-56) Alkaline Phosphatase 54 U/L (0-126) Troponin I < 0.012 ng/ml B-Type Natriuretic Peptide 132 pg/ml (0-100) Total Protein 7.7 g/dl (6.3-8.2) Albumin 4.3 g/dl (3.5-5.0) EKG/Imaging EKG Interpretation 12 lead EKG: Time of EKG 1518. Rhythm: Normal sinus rhythm, ventricular rate 62 bpm. Daggett: normal QRS: normal ST segments: No ST depression or elevation identified. Poor T-wave progression, inverted T waves in V2, V3. No significant changes from the 03/13/2018 EKG. Imaging Location: [facility] Patient: Dudley Matthews : 1950 Visit/Account:[id number] Date of Sevice: 09/04/2018 2 VIEWS CHEST INDICATION: Shortness of breath and cough. COMPARISON: 03/13/2018. FINDINGS: Cardiomediastinal silhouette and pulmonary vessels within normal limits. There is no focal infiltrate or lobar consolidation. There is no pneumothorax or pleural effusion. No nodule. Upper abdomen is unremarkable. No acute bony abnormality. Old right rib fractures. Degenerative changes spine. IMPRESSION: 1. No acute cardiopulmonary process. Report Dictated By: Richardson Gaston at 09/04/2018 3:52 PM Report E-Signed By: Richardson Gaston at 09/04/2018 3:53 PM WSN:[id number] ED Course/Re-evaluation Clinical Indication for ER IV: IV Access ED Course The patient was admitted to room. A history and physical obtained. Differential diagnoses were considered. An IV was started. A CBC, CMP, troponin and BNP were obtained.CBC showing platelets 139, with a mild left shift, sodium 134, chloride 96, CO2 32, negative troponin, BNP 132. Mildly low platelets, previous plat elets studies the patient showing down to 150. A two-view chest x-ray was negative for any acute cardiopulmonary process. Patient had extensive expiratory wheezing with diminished lung sounds, he received a total of 2 DuoNeb's and one albuterol nebulizer with significant relief of his symptoms. He also received 125 mg IV Solu-Medrol. I reviewed the results with the patient. I did tell him this is likely a COPD exacerbation he was given a prescription for a tapered dose of prednisone, he was also given a refill on his albuterol nebulizer bullets. Instructed to follow-up with his primary care provider within one week for reevaluation. Patient expressed understanding was discharged home. The corrina mon was in agreement with this plan of care. Decision to Disposition Date: Sep 04, 2018 Decision to Disposition Time: 17:48 Depart Departure Latest Vital Signs Vital Signs Date Time Temp Pulse Resp B/P (MAP) Pulse Ox O2 Delivery O2 Flow Rate FiO2 09/04/18 17:28 59 16 09/04/18 17:22 90 Nasal Cannula 4.0 09/04/18 16:30 163/97 (119) 09/04/18 14:53 98.3 Impression: Primary Impression: COPD exacerbation Condition: Improved Disposition: HOME OR SELF-CARE Referrals: TOMMY ELIZABETH MD (PCP) New Scripts Prednisone (PREDNISONE) 20 Mg Tablet 40 MG PO QDAY, #17 TAB 40mg once a day for 4 days. 30mg once a day for 3 days. 20mg once a day for 3 days. 10mg once a day for 2 days. Prov: WILLIE ISLAS 09/04/18 Albuterol Sulfate 0.083% (ALBUTEROL SULFATE 0.083%) 2.5 Mg/3 Ml Vial.neb 2.5 MG INH Q4-6H PRN for SHORTNESS OF BREATH, #20 VIAL Prov: WILLIE ISLAS 09/04/18 Patient Instructions: COPD (Chronic Obstructive Pulmonary Disease) (ED) Additional Instructions: You have a COPD exacerbation. No concerning findings on your Xray. Start the prednisone tomorrow. Drink plenty of water. Get plenty of rest. Follow up with Dr. Elizabeth next week for reevaluation. Return to the ED for any other concerns or worsening symptoms. WILLIE ISLAS Sep 04, 2018 14:56
[2018-09-04] MEDS ORDERED: ALBUTEROL/IPRATROPIUM 3 ML NEB NEB ONE ×2 (15:15→16:05)
[2018-09-04] MEDS ORDERED: methylPREDNIS SUCC 125 MG/2ML IVP ONE (15:15)
[2018-09-04 15:27] LABS: PLATELET COUNT, AUTOMATED 139 K/uL (150-450)
--- NOTE | 2018-09-04 15:38 | EKG ---
FACILITY: [facility] - [place] PATIENT NAME: DIOGENES STOLL : [id number] MR: [id number] V: [id number] EXAM DATE: ORDERING PHYSICIAN: WILLIE ISLAS TECHNOLOGIST: ELLA Test Reason : Blood Pressure : / mmHG Vent. Rate : 062 BPM Atrial Rate : 062 BPM P-R Int : 148 ms QRS Dur : 094 ms QT Int : 422 ms P-R-T Axes : 048 009 061 degrees QTc Int : 428 ms Normal sinus rhythm Nonspecific T wave abnormality Abnormal ECG When compared with ECG of 13-MAR-2018 20:06, Vent. rate has decreased BY 38 BPM Criteria for Inferior infarct are no longer present QT has shortened Confirmed by KARINA BLANCO ([id number]) on 09/05/2018 7:27:14 AM Referred By: Confirmed By:KARINA BLANCO
--- NOTE | 2018-09-04 15:58 | RADIOLOGY IMAGING REPORT ---
FACILITY: [facility] PATIENT NAME: Dudley Matthews : 1950 MR: [id number] V: [id number] EXAM DATE: ORDERING PHYSICIAN: WILLIE ISLAS TECHNOLOGIST: Location: [facility] Patient: Dudley Matthews : 1950 Visit/Account:[id number] Date of Sevice: 09/04/2018 2 VIEWS CHEST INDICATION: Shortness of breath and cough. COMPARISON: 03/13/2018. FINDINGS: Cardiomediastinal silhouette and pulmonary vessels within normal limits. There is no focal infiltrate or lobar consolidation. There is no pneumothorax or pleural effusion. No nodule. Upper abdomen is unremarkable. No acute bony abnormality. Old right rib fractures. Degenerative marshall es spine. IMPRESSION: 1. No acute cardiopulmonary process. Report Dictated By: Richardson Gaston at 09/04/2018 3:52 PM Report E-Signed By: Richardson Gaston at 09/04/2018 3:53 PM WSN:[id number]
[2018-09-04] MEDS ORDERED: ALBUTEROL 2.5 MG/3 ML NEB NEB ONE (17:20)
[2018-09-04] MEDS ORDERED: PRED20TA6 PO (17:20)
[2018-09-04] MEDS ORDERED: ALBU2.5V36 INH (17:20)
[2018-09-04 17:57] VITALS: BP 178/102
[2018-09-08] MEDS ORDERED: ALBU2.5V36 INH (15:44)
== END 2018-09-04 18:10 | disposition home or self-care (01) ==
LOC: ER 15:18
DX: J44.1 Chronic obstructive pulmonary disease with (acute) exacerbation (principal)
CPT/HCPCS: 71046; 83880; 84484; 85025; 93005; 94640; 96374; 99284; J2930; J7613; J7620; 82040; 82247; 82310; 82374; 82435; 82565; 82947; 84075; 84132; 84155; 84295; 84450; 84460; 84520

== ENCOUNTER 2019-02-08 16:09 | Emergency (ER) | payer MEDICARE, MEDICAID ==
[2018-03-07 10:05] VITALS: Wt 86.4 kg
--- NOTE | 2019-02-08 16:16 | ER Report ---
History and Physical Time Seen By : 16:14 HPI/ROS Puritic, burning, linear rash to left low back around to left abdomen for a week. Never had Shingles. No travel. Has had Varicella in the past. No fe yunior/chills, no n/v. No new meds. No other rashes. Remainder of the 14 system rev: Yes Allergies: Coded Allergies: iopamidol (Verified Allergy, Severe, EYE SWELLING AND HIVES, 03/07/18) acetylcysteine (Verified Adverse Reaction, Intermediate, bronchospasms, 03/07/18) Uncoded Allergies: iv dye (Allergy, Severe, redness, swelling of face, hives, 03/07/18) Home Meds Active Scripts Escitalopram Oxalate (ESCITALOPRAM OXALATE) 20 Mg Tablet, 20 MG PO QDAY, #90 TAB 1 Refill Prov:TOMMY LEHMAN MD 12/12/18 Losartan Potassium (LOSARTAN POTASSIUM) 100 Mg Tablet, 100 MG PO QDAY, #90 TAB 3 Refills Prov:TOMMY LEHMAN MD 12/12/18 Furosemide (FUROSEMIDE) 40 Mg Tablet, 1 TAB PO QODAY for 90 Days, #90 TAB 4 Refills Prov:TOMMY LEHMAN MD 12/05/18 Albuterol Sulfate 0.083% (ALBUTEROL SULFATE 0.083%) 2.5 Mg/3 Ml Vial.neb, 2.5 MG INH Q4-6H PRN for SHORTNESS OF BREATH, #20 VIAL Prov:TOMMY LEHMAN MD 09/08/18 Carvedilol (CARVEDILOL) 12.5 Mg Tablet, 1 TAB PO BID, #60 TAB 6 Refills Prov:TOMMY LEHMAN MD 03/19/18 Fluticasone/Salmeterol (ADVAIR 500-50 DISKUS) 1 Each Disk.w.dev, 1 EACH IH BID, #1 DISK 5 Refills Prov:TOMMY LEHMAN MD 01/06/18 Pantoprazole Sodium (PANTOPRAZOLE SODIUM) 40 Mg Tablet.dr, 40 MG PO QDAY, #90 TAB.SR 4 Refills Prov:TOMMY LEHMAN MD 11/04/17 Albuterol Sulfate 0.083% (ALBUTEROL SULFATE 0.083%) 2.5 Mg/3 Ml Vial.neb, 2.5 MG INH Q4-6H PRN for WHEEZING, #25 INH Prov:SHANEL SELBY V DO 10/20/17 Albuterol Sulfate (PROVENTIL HFA) 6.7 Gm Inh, 2 PUFF INH 3-4XD PRN for SHORTNESS OF BREATH, #1 INH 4 Refills Prov:TOMMY LEHMAN MD 07/18/17 Discontinued Scripts Ipratropium/Albuterol Sulfate (IPRAT-ALBUT 0.5-3(2.5) MG/3 ML) 3 Ml Ampul.neb, 3 ML IH Q4-6H PRN for SHORTNESS OF BREATH, #100 VIAL 4 Refills Prov:TOMMY LEHMAN MD 10/09/18 Prednisone (PREDNISONE) 20 Mg Tablet, 40 MG PO QDAY, #17 TAB 40mg once a day for 4 days. 30mg once a day for 3 days. 20mg once a day for 3 days. 10mg once a day for 2 days. Prov:WILLIE ISLAS CAP COVERER-BC 09/04/18 Hydrocodone Bit/Acetaminophen (HYDROCODON-ACETAMINOPHEN 5-325) 1 Each Tablet, 1 EACH PO Q4-6H PRN for PAIN, #12 TAB Prov:SANTIAGO PEOPLES [facility] 03/13/18 Cyclobenzaprine Hcl (CYCLOBENZAPRINE HCL) 10 Mg Tablet, 10 MG PO TID PRN for MUSCLE SPASMS, #15 TAB Prov:SANTIAGO PEOPLESP 03/13/18 Ibuprofen (IBUPROFEN) 600 Mg Tablet, 1 TAB PO Q8H for 30 Days, #90 TAB Prov:JACKIE LUCIA MD 03/08/18 Tramadol Hcl (TRAMADOL HCL) 50 Mg Tablet, 50 MG PO Q6H PRN for PAIN for 30 Days, #40 1 Refill Prov:JACKIE LUCIA MD 03/08/18 Gabapentin (GABAPENTIN) 100 Mg Capsule, 100 MG PO TID for PAIN for 30 Days, #90 CAPSULE 1 Refill Prov:JACKIE LUCIA MD 03/08/18 Hx Smoking: No Smoking Status: Never Smoker 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 Respiratory: Chest is non tender, lungs are clear to auscultation. Cardiac: regular rate and rhythm Gastrointestinal: Abdomen is soft and non tender, no masses, bowel sounds normal. Erythematous linear, vesicular rash to left lower abdomen Skin: Left lower back with dermatomal, vesicular, erythematous rash of various stages of healing Medical Decision Making ED Course/Re-evaluation ED Course Rash c/w Shingles. Also with HTN due to not taking meds today. Will give Clonidine in the ED and an RX for Shingles rash. Pt. will resume home HTN meds when he gets home today. Decision to Disposition Date: Feb 08, 2019 Decision to Disposition Time: 16:29 Depart Departure Latest Vital Signs Vital Signs Date Time Temp Pulse Resp B/P (MAP) Pulse Ox O2 Delivery O2 Flow Rate FiO2 02/08/19 16:21 198/124 (148) 02/08/19 16:13 99.0 106 22 91 Nasal Cannula Impression: Primary Impression: Shingles rash Condition: Improved Disposition: HOME OR SELF-CARE Referrals: TOMMY LEHMAN MD (PCP) New Scripts Valacyclovir Hcl (VALACYCLOVIR) 1,000 Mg Tablet 1000 MG PO TID for 7 Days, #21 Prov: ANDRE COLLADO MD 02/08/19 Patient Instructions: Shingles (ED) Additional Instructions: TAKE YOUR HOME BLOOD PRESSURE MEDICATIONS WHEN YOU ARRIVE BACK HOME TODAY Problem Qualifiers Primary Impression: Shingles rash Herpes zoster complications: without complications Qualified Codes: B02.9 - Zoster without complications ANDRE COLLADO MD Feb 08, 2019 16:16
[2019-02-08] MEDS ORDERED: cloNIDine HCL 0.1 MG TAB PO ONE ×2 (16:30→17:20)
[2019-02-08] MEDS ORDERED: VALA100059 PO (16:34)
[2019-02-08 17:50] VITALS: BP 188/106
== END 2019-02-08 17:54 | disposition home or self-care (01) ==
LOC: ER 16:30
DX: B02.9 Zoster without complications (principal); Z79.899 Other long term (current) drug therapy
CPT/HCPCS: 99283; A9270

== ENCOUNTER → 2019-03-03 | Outpatient (CLI) | payer MEDICARE ==
[2018-03-07 10:05] VITALS: BMI 28.6
[~2019-03-03] MED LIST changes: +AMLO-127 PO; +CARV25TA78 PO; +LOSA-54 PO; +VALA100059 PO
--- NOTE | 2019-03-03 15:44 | EKG ---
FACILITY: [facility] - [place] PATIENT NAME: DIOGENES STOLL : [id number] MR: [id number] V: [id number] EXAM DATE: ORDERING PHYSICIAN: TOMMY LEHMAN TECHNOLOGIST: SG Test Reason : ELEVATED BP Blood Pressure : / mmHG Vent. Rate : 060 BPM Atrial Rate : 060 BPM P-R Int : 168 ms QRS Dur : 092 ms QT Int : 452 ms P-R-T Axes : 049 000 035 degrees QTc Int : 452 ms Normal sinus rhythm Inferior infarct , age undetermined Abnormal ECG When compared with ECG of 04-SEP-2018 15:18, Inferior infarct is now present Referred By: ABBY Confirmed By:
== END ==
LOC: RESP 14:45
PROVIDERS: ATTEND Internal Medicine
DX: R94.31 Abnormal electrocardiogram [ECG] [EKG] (principal)

== ENCOUNTER → 2019-03-09 | Outpatient (CLI) | payer MEDICARE ==
[2018-03-07 10:05] VITALS: BMI 28.6
== END ==
LOC: US 01:17
PROVIDERS: ATTEND Internal Medicine
DX: I51.7 Cardiomegaly (principal); I71.2 Thoracic aortic aneurysm, without rupture
CPT/HCPCS: 93306